=== PATIENT | female | born 1985 | race Caucasian/White ===

== ENCOUNTER → 2017-05-22 | Outpatient (REF) | payer BC ==
[2017-05-22 14:02] LABS: MEAN CORPUSCULAR HEMOGLOBIN 30.6 pg (27.0-33.0); MEAN CORPUSCULAR HGB CONC 32.6 g/dl (32.0-36.5); PLATELET COUNT, AUTOMATED 436 10^3/uL (150-450); RED CELL DISTRIBUTION WIDTH 12.8 % (11.5-14.5); WHITE BLOOD COUNT 12.3 10^3/uL (4.0-10.0)
[2017-05-22 14:45] LABS: HCG, SERUM QUANTITATIVE 2045 MIU/ML
[2017-05-23 14:31] LABS: HBsAg Prenatal NEGATIVE (NEGATIVE)
== END ==
LOC: M LAB REF 13:49
PROVIDERS: ATTEND Obstetrics & Gynecology
DX: O36.80X0 Pregnancy with inconclusive fetal viability, not applicable or unspecified (principal)

== ENCOUNTER → 2017-05-25 | Outpatient (REF) | payer BC | LOC: M LAB REF 13:22 | PROVIDERS: ATTEND Obstetrics & Gynecology | DX: O36.80X0 Pregnancy with inconclusive fetal viability, not applicable or unspecified (principal); Z3A.00 Weeks of gestation of pregnancy not specified ==

== ENCOUNTER → 2017-06-04 | Outpatient (REF) | payer BC | LOC: M LAB REF 13:36 | PROVIDERS: ATTEND Obstetrics & Gynecology | DX: O36.80X0 Pregnancy with inconclusive fetal viability, not applicable or unspecified (principal); Z3A.00 Weeks of gestation of pregnancy not specified ==

== ENCOUNTER → 2017-06-27 | Outpatient (CLI) | payer BC ==
[2017-06-27 18:59] LABS: MEAN CORPUSCULAR HEMOGLOBIN 30.6 pg (27.0-33.0); MEAN CORPUSCULAR HGB CONC 32.2 g/dl (32.0-36.5); MEAN CORPUSCULAR VOLUME 95.1 fl (80.0-96.0); PLATELET COUNT, AUTOMATED 401 10^3/uL (150-450); RED CELL DISTRIBUTION WIDTH 13.3 % (11.5-14.5); WHITE BLOOD COUNT 15.4 10^3/uL (4.0-10.0)
[2017-06-27 19:29] LABS: ALT/SGPT 67 U/L (12-78); AST/SGOT 38 U/L (7-37); BILIRUBIN,TOTAL 0.7 MG/DL (0.2-1.0); CREATININE FOR GFR 0.49 MG/DL (0.55-1.02); GLOMERULAR FILTRATION RATE > 60.0 (>60)
== END ==
LOC: M LAB 18:24
PROVIDERS: ATTEND Advanced Practice Midwife
DX: O09.891 Supervision of other high risk pregnancies, first trimester (principal); I10 Essential (primary) hypertension; Z3A.00 Weeks of gestation of pregnancy not specified

== ENCOUNTER → 2017-07-03 | Outpatient (CLI) | payer BC ==
[2017-07-03 12:29] LABS: ANION GAP 9 MEQ/L (8-16); BLOOD UREA NITROGEN 13 MG/DL (7-18); CALCIUM LEVEL 9.1 MG/DL (8.5-10.1); CARBON DIOXIDE LEVEL 25 MEQ/L (21-32); CHLORIDE LEVEL 105 MEQ/L (98-107); CREATININE FOR GFR 0.47 MG/DL (0.55-1.02); FREE T4 0.86 NG/DL (0.76-1.46); GLOMERULAR FILTRATION RATE > 60.0 (>60); GLUCOSE, FASTING 101 MG/DL (70-105); SODIUM LEVEL 139 MEQ/L (136-145)
== END ==
LOC: M WUC 10:14
PROVIDERS: ATTEND Physician Assistant
DX: E78.2 Mixed hyperlipidemia (principal); F41.1 Generalized anxiety disorder

== ENCOUNTER → 2017-10-23 | Outpatient (CLI) | payer BC ==
[2017-10-23 08:08] LABS: GLUCOSE, FASTING 129 MG/DL (LESS THAN 95)
[2017-10-23 08:55] LABS: 1 HR GLUCOSE 245 MG/DL (LESS THAN 180)
[2017-10-23 09:48] LABS: 2 HR GLUCOSE 227 MG/DL (LESS THAN 155)
[2017-10-23 10:46] LABS: 3 HR GLUCOSE 119 MG/DL (LESS THAN 140)
== END ==
LOC: M LAB 07:01
DX: O09.892 Supervision of other high risk pregnancies, second trimester (principal)
CPT/HCPCS: 82951

== ENCOUNTER → 2017-10-31 | Outpatient (REF) | payer BC | LOC: M LAB REF 12:46 | DX: O09.893 Supervision of other high risk pregnancies, third trimester (principal) | CPT/HCPCS: 87086 ==

== ENCOUNTER → 2017-12-13 | Outpatient (REF) | payer BC | LOC: M LAB REF 12-14 13:12 | DX: Z34.83 Encounter for supervision of other normal pregnancy, third trimester (principal); Z3A.00 Weeks of gestation of pregnancy not specified | CPT/HCPCS: 87081 ==

== ENCOUNTER 2017-12-29 07:38 | Inpatient (IN) | payer BC ==
[2017-12-29 08:34] LABS: HEMOGLOBIN 10.4 g/dl (12.0-15.5); MEAN CORPUSCULAR HEMOGLOBIN 30.3 pg (27.0-33.0); MEAN CORPUSCULAR HGB CONC 32.5 g/dl (32.0-36.5); MEAN CORPUSCULAR VOLUME 93.3 fl (80.0-96.0); PLATELET COUNT, AUTOMATED 341 10^3/uL (150-450); RED BLOOD COUNT 3.43 10^6/uL (4.00-5.40); RED CELL DISTRIBUTION WIDTH 14.8 % (11.5-14.5); WHITE BLOOD COUNT 11.5 10^3/uL (4.0-10.0)
[2017-12-29 09:08] LABS: ALT/SGPT 22 U/L (12-78); AST/SGOT 23 U/L (7-37); BILIRUBIN,TOTAL 0.5 MG/DL (0.2-1.0); CREATININE FOR GFR 0.66 MG/DL (0.55-1.30); GLOMERULAR FILTRATION RATE > 60.0 (>60); LDH LACTATE DEHYDROGENASE 157 U/L (84-246); URIC ACID 6.3 MG/DL (2.6-6.0)
[2017-12-29] MEDS: LABETALOL 100 MG TAB PO ×2 (10:00→20:18)
[2017-12-29 10:42] LABS: TOTAL PROTEIN,RANDOM URINE 105.7 MG/DL (0.0-12.0)
[2017-12-29] MEDS: LR 1,000 ML IV ×2 (11:13→18:52)
[2017-12-29] MEDS: OXYTOCIN DRIP 30 UNITS in APPROPRIATE DILUENT 1 EA IV (11:14)
[2017-12-29 12:37] LABS: BEDSIDE GLUCOSE 85 MG/DL (70-105)
[2017-12-29 17:01] LABS: BEDSIDE GLUCOSE 74 MG/DL (70-105)
[2017-12-29] MEDS ORDERED: glyBURIDE 2.5 MG TAB PO (17:30)
[2017-12-29 18:04] LABS: BEDSIDE GLUCOSE 76 MG/DL (70-105)
[2017-12-29 19:58] LABS: BEDSIDE GLUCOSE 60 MG/DL (70-105)
[2017-12-29] MEDS ORDERED: FENTANYL 2MCG/ML ROPIVACAINE 0.2% IN 0.9% NACL 200ML IVBAG As Ordered (22:07)
[2017-12-29 22:11] LABS: HEMATOCRIT 31.3 % (36.0-47.0); HEMOGLOBIN 10.4 g/dl (12.0-15.5); MEAN CORPUSCULAR HEMOGLOBIN 30.3 pg (27.0-33.0); MEAN CORPUSCULAR HGB CONC 33.2 g/dl (32.0-36.5); MEAN CORPUSCULAR VOLUME 91.3 fl (80.0-96.0); PLATELET COUNT, AUTOMATED 339 10^3/uL (150-450); RED BLOOD COUNT 3.43 10^6/uL (4.00-5.40); RED CELL DISTRIBUTION WIDTH 14.8 % (11.5-14.5); WHITE BLOOD COUNT 14.9 10^3/uL (4.0-10.0)
[2017-12-29 22:49] LABS: BEDSIDE GLUCOSE 83 MG/DL (70-105)
[2017-12-29] MEDS: FENTANYL/ROPIVACAINE/NACL BAG 200 ML EPIDURAL (23:45)
[2017-12-29] MEDS ORDERED: EPIDURAL/PCA KEYS XX (23:45)
[2017-12-29] MEDS ORDERED: ePHEDrine SULFATE 25 MG/5 ML(5MG/ML) SYRINGE IV (23:45)
[2017-12-29] MEDS ORDERED: ONDANSETRON 4MG/2ML VIAL (J2405) IV (23:45)
[2017-12-29] MEDS ORDERED: diphenhydrAMINE INJ 50MG/ML VIAL (J1200) IV (23:45)
[2017-12-29] MEDS ORDERED: EPIDURAL COMMENT XX (23:45)
[2017-12-29] MEDS ORDERED: NALOXONE INJ 0.4 MG/1 ML VIAL (J2310) IV (23:45)
[2017-12-29] MEDS ORDERED: REFRIGERATOR IV KEYS XX (23:45)
[2017-12-29 23:55] LABS: BEDSIDE GLUCOSE 79 MG/DL (70-105)
[2017-12-30] MEDS ORDERED: ceFAZolin 2 GM/D5W 50 ML IV BAG (J0690 PER 500MG) As Ordered (00:32)
[2017-12-30] MEDS ORDERED: BICITRA 30ML SOLN UDC As Ordered (00:32)
[2017-12-30] MEDS: BICITRA 30ML SOLN UDC PO (00:45)
[2017-12-30] MEDS ORDERED: OXYTOCIN INJ 10 UNITS/ML VIAL (J2590) As Ordered (01:21)
[2017-12-30] MEDS ORDERED: ONDANSETRON 4MG/2ML VIAL (J2405) As Ordered ×2 (01:21→02:50)
[2017-12-30] MEDS ORDERED: dexameTHASONE 4 MG/ML 1ML VIAL (J1100) As Ordered (01:21)
[2017-12-30] MEDS ORDERED: KETOROLAC 60 MG/2 ML VIAL (J1885) As Ordered (01:21)
[2017-12-30] MEDS ORDERED: MORPHINE PRES-FREE INJ 10 MG/10 ML VIAL (J2274) As Ordered (01:21)
[2017-12-30 01:45] LABS: CORD GAS ABE V -4.6; CORD GAS HCO3 V 20.8 MEQ/L; CORD GAS PCO2 V 39.6 mmHg; CORD GAS PH V 7.338 UNITS; CORD GAS PO2 V 25.9 mmHg; CORD GAS SBC V 19.8 MEQ/L
[2017-12-30] MEDS ORDERED: NALOXONE INJ 0.4 MG/1 ML VIAL (J2310) IV ×2 (01:48)
[2017-12-30] MEDS ORDERED: ONDANSETRON 4MG/2ML VIAL (J2405) IV ×2 (01:48→02:30)
[2017-12-30] MEDS ORDERED: NALBUPHINE HCL 10 MG/ML AMP (J2300) IV ×2 (01:48→02:30)
[2017-12-30 01:50] LABS: CORD GAS ABE A -2.5; CORD GAS HCO3 A 26.8 MEQ/L; CORD GAS O2 SAT A 15.2 %; CORD GAS PCO2 A 65.4 mmHg; CORD GAS PH A 7.231 UNITS; CORD GAS PO2 A < 10.0 mmHg; CORD GAS SBC A 20.2 MEQ/L; CORD GAS TCO2 A 28.8 MEQ/L
[2017-12-30] MEDS: LR 1,000 ML IV ×4 (02:11→18:02)
[2017-12-30] MEDS ORDERED: METHYLERGONOVINE MALEATE 0.2 MG/ML VIAL (J2210) IM (02:15)
[2017-12-30] MEDS ORDERED: RHOGAM 300 MCG (1500 IU) INJ (J2790) IM (02:15)
[2017-12-30] MEDS ORDERED: NORCO, ANEXSIA 5/325MG TABLET (HYDROcodone/ACETAMINOPHEN) PO (02:15)
[2017-12-30] MEDS ORDERED: MOM 30ML SUSPENSION UDC PO (02:15)
[2017-12-30] MEDS ORDERED: MEASLES,MUMPS,RUBELLA VACCINE INJ (MMR-II) (90707) SC (02:15)
[2017-12-30] MEDS ORDERED: MORPHINE 10 MG/ML 1ML VIAL (J2270) IV (02:30)
[2017-12-30] MEDS ORDERED: fentaNYL 100 MCG/2 ML INJECTION (J3010) IV (02:30)
[2017-12-30] MEDS ORDERED: fentaNYL 100 MCG/2 ML INJECTION (J3010) As Ordered (02:36)
[2017-12-30] MEDS ORDERED: LABETALOL HCL 100 MG/20 ML VIAL As Ordered (02:45)
[2017-12-30] MEDS: LABETALOL HCL 100 MG/20 ML VIAL IV (02:53)
[2017-12-30] MEDS ORDERED: PROMETHAZINE INJ 25 MG/ML VIAL (J2550) As Ordered (03:24)
[2017-12-30 03:25] LABS: BEDSIDE GLUCOSE 109 MG/DL (70-105)
[2017-12-30] MEDS: PROMETHAZINE INJ 25 MG/ML VIAL (J2550) IV (04:00)
[2017-12-30] MEDS: NS 500 ML IV (04:00)
[2017-12-30] MEDS ORDERED: MEPERIDINE 50 MG/ML 1ML VIAL (J2175) As Ordered (04:03)
[2017-12-30] MEDS: METOCLOPRAMIDE INJ 10MG/2ML VIAL (J2765) IV (06:39)
[2017-12-30] MEDS: LR 300 ML IV (06:45)
[2017-12-30 07:40] LABS: ALT/SGPT 21 U/L (12-78); AST/SGOT 22 U/L (7-37); BILIRUBIN,TOTAL 0.8 MG/DL (0.2-1.0); CREATININE FOR GFR 0.65 MG/DL (0.55-1.30); GLOMERULAR FILTRATION RATE > 60.0 (>60); LDH LACTATE DEHYDROGENASE 198 U/L (84-246)
[2017-12-30] MEDS: LABETALOL 100 MG TAB PO ×2 (09:00→21:14)
[2017-12-30] MEDS: PRENATAL VITAMINS CHEWABLE TABLET PO (09:00)
[2017-12-30] MEDS: DOCUSATE SODIUM 100 MG CAP PO ×2 (09:00→21:16)
[2017-12-30] MEDS: ONDANSETRON 4MG/2ML VIAL (J2405) IV ×3 (09:01→17:40)
[2017-12-30] MEDS: IBUPROFEN 800 MG TAB PO ×2 (10:00→18:00)
[2017-12-30 10:17] LABS: BEDSIDE GLUCOSE 118 MG/DL (70-105)
[2017-12-30] MEDS: KETOROLAC 30 MG/ML VIAL (J1885) IV ×2 (15:47→21:10)
[2017-12-30] MEDS: OMEPRAZOLE 20 MG CAP PO (21:15)
[2017-12-31] MEDS: KETOROLAC 30 MG/ML VIAL (J1885) IV (04:48)
[2017-12-31] MEDS: NORCO, ANEXSIA 5/325MG TABLET (HYDROcodone/ACETAMINOPHEN) PO ×3 (07:55→19:45)
[2017-12-31 07:59] LABS: HEMATOCRIT 25.9 % (36.0-47.0); MEAN CORPUSCULAR HEMOGLOBIN 30.3 pg (27.0-33.0); MEAN CORPUSCULAR VOLUME 94.5 fl (80.0-96.0); PLATELET COUNT, AUTOMATED 287 10^3/uL (150-450); RED BLOOD COUNT 2.74 10^6/uL (4.00-5.40)
[2017-12-31 08:07] LABS: HEMOGLOBIN 8.3 g/dl (12.0-15.5)
[2017-12-31] MEDS: OMEPRAZOLE 20 MG CAP PO (09:42)
[2017-12-31] MEDS: DOCUSATE SODIUM 100 MG CAP PO ×2 (09:42→21:09)
[2017-12-31] MEDS: LABETALOL 100 MG TAB PO ×2 (09:42→21:09)
[2017-12-31] MEDS: PRENATAL VITAMINS CHEWABLE TABLET PO (09:42)
[2017-12-31] MEDS: IBUPROFEN 800 MG TAB PO ×2 (10:00→19:29)
[2017-12-31] MEDS ORDERED: ONDANSETRON 4MG/2ML VIAL (J2405) IV (15:15)
[2017-12-31] MEDS: ONDANSETRON 4MG/2ML VIAL (J2405) IV (16:10)
[2018-01-01] MEDS: IBUPROFEN 800 MG TAB PO ×2 (01:58→09:48)
[2018-01-01] MEDS: NORCO, ANEXSIA 5/325MG TABLET (HYDROcodone/ACETAMINOPHEN) PO ×2 (05:40→09:36)
[2018-01-01] MEDS: DOCUSATE SODIUM 100 MG CAP PO (09:06)
[2018-01-01] MEDS: OMEPRAZOLE 20 MG CAP PO (09:09)
[2018-01-01] MEDS: PRENATAL VITAMINS CHEWABLE TABLET PO (09:09)
[2018-01-01] MEDS: LABETALOL 100 MG TAB PO (09:09)
== END 2018-01-01 11:00 | disposition home or self-care (01) | DRG 540 ==
LOC: M LDI 07:38 → M OBS 12-30 05:03
PROC: 10D00Z1 Extraction of Products of Conception, Low, Open Approach (ICD-10-PCS; principal; 2017-12-29 01:02)
PROC: 3E033VJ Introduction of Other Hormone into Peripheral Vein, Percutaneous Approach (ICD-10-PCS; 2017-12-29 01:02)
DX: O11.4 Pre-existing hypertension with pre-eclampsia, complicating childbirth (principal); E66.9 Obesity, unspecified; O99.214 Obesity complicating childbirth; O24.425 Gestational diabetes mellitus in childbirth, controlled by oral hypoglycemic drugs; O64.0XX0 Obstructed labor due to incomplete rotation of fetal head, not applicable or unspecified; Z37.0 Single live birth; Z3A.37 37 weeks gestation of pregnancy; Z79.899 Other long term (current) drug therapy; O76 Abnormality in fetal heart rate and rhythm complicating labor and delivery

== ENCOUNTER → 2018-03-20 | Outpatient (REF) | payer BC ==
[2018-03-20 23:56] LABS: CHLAMYDIA DNA AMPLIFICATION NEGATIVE (NEGATIVE); GC DNA AMPLIFICATION NEGATIVE (NEGATIVE)
== END ==
LOC: M LAB REF 17:28
DX: R30.0 Dysuria (principal)
CPT/HCPCS: 87186

== ENCOUNTER → 2018-08-01 | Outpatient (CLI) | payer BC ==
[~2018-08-01] MED LIST: CELE20TA PO; CLAR10CA3 PO; COLA100C5 PO; GLYB25TA PO; IBUP80TA PO; LABE300T2 PO; OMEP40CA2 PO; OXYC1TAB23 PO; PRENTAB9 PO
--- NOTE | 2018-08-01 20:07 | REP ---
Clinical: Acute bronchitis. Technique: PA and lateral. Comparison: None. Findings: Elevation to the right hemidiaphragm is appreciated with underlying right lower lobe atelectasis/infiltrate suspected and possible small pleural reaction. Remainder of lung lai are well-aerated and clear. No pneumothorax. Skeletal structures intact. Mediastinum and cardiac silhouette within normal limits. Impression: Suspected right lower lobe atelectasis/infiltrate. Correlation recommended. Nonspecific elevation to the right hemidiaphragm. Electronically Signed by Juan Pablo Chavez MD 08/01/2018 07:59 P
== END ==
LOC: M RAD 14:16
PROVIDERS: ATTEND Physician Assistant
DX: R91.8 Other nonspecific abnormal finding of lung field (principal); J20.9 Acute bronchitis, unspecified

== ENCOUNTER → 2018-08-28 | Outpatient (CLI) | payer BC ==
--- NOTE | 2018-08-29 02:34 | REP ---
Clinical: Acute bronchitis. Technique: PA and lateral. Comparison: 08/19/2018. Findings: Mediastinum and cardiac silhouette are normal. Right basilar atelectasis and possible small right pleural reaction cannot be excluded. Remainder of lung lai are well-aerated and clear. No pneumothorax. Skeletal structures are intact. Impression: Possible right basilar atelectasis and small pleural reaction. Clinical correlation recommended. Electronically Signed by Juan Pablo Chavez MD 08/29/2018 02:25 A
== END ==
LOC: M RAD 11:03
PROVIDERS: ATTEND Family Medicine
DX: J20.9 Acute bronchitis, unspecified (principal)

== ENCOUNTER → 2018-11-27 | Outpatient (CLI) | payer BC ==
[2018-11-27 20:01] LABS: HEMATOCRIT 38.6 % (36.0-47.0); MEAN CORPUSCULAR HEMOGLOBIN 29.1 pg (27.0-33.0); MEAN CORPUSCULAR HGB CONC 31.1 g/dl (32.0-36.5); MEAN CORPUSCULAR VOLUME 93.7 fl (80.0-96.0); PLATELET COUNT, AUTOMATED 429 10^3/uL (150-450); RED BLOOD COUNT 4.12 10^6/uL (4.00-5.40)
[2018-11-27 20:20] LABS: LYMPHOCYTES 45 % (16-52); MONOCYTES 4 % (0-8); NEUTROPHILS 51 % (35-75); PLATELET ESTIMATE NORMAL (NORMAL)
[2018-11-27 20:25] LABS: ALBUMIN 3.9 GM/DL (3.2-5.2); ALT/SGPT 86 U/L (12-78); BILIRUBIN,TOTAL 0.6 MG/DL (0.2-1.0); BLOOD UREA NITROGEN 13 MG/DL (7-18); CALCIUM LEVEL 9.5 MG/DL (8.5-10.1); CARBON DIOXIDE LEVEL 28 MEQ/L (21-32); CHLORIDE LEVEL 104 MEQ/L (98-107); CHOLESTEROL LEVEL 247 MG/DL (<200); CHOLESTEROL RISK RATIO 8.517 (<5); CREATININE FOR GFR 0.59 MG/DL (0.55-1.30); FREE T4 0.75 NG/DL (0.76-1.46); GLOMERULAR FILTRATION RATE > 60.0 (>60); GLUCOSE, FASTING 98 MG/DL (70-100); HDL CHOLESTEROL 29 MG/DL (>40); NON-HDL-C 218 MG/DL; POTASSIUM SERUM 4.4 MEQ/L (3.5-5.1); SODIUM LEVEL 139 MEQ/L (136-145); TOTAL PROTEIN 7.4 GM/DL (6.4-8.2); TRIGLYCERIDES LEVEL 405 MG/DL (<150)
[2018-11-27 21:53] LABS: HEMOGLOBIN A1c 5.8 %
== END ==
LOC: M WUC 18:22
PROVIDERS: ATTEND Family Medicine
DX: Z13.29 Encounter for screening for other suspected endocrine disorder (principal); Z13.0 Encounter for screening for diseases of the blood and blood-forming organs and certain disorders involving the immune mechanism; Z13.220 Encounter for screening for lipoid disorders

== ENCOUNTER → 2018-12-11 | Outpatient (REF) | payer BC ==
[2018-12-11 21:25] LABS: CHLAMYDIA DNA AMPLIFICATION NEGATIVE (NEGATIVE); GC DNA AMPLIFICATION NEGATIVE (NEGATIVE)
== END ==
LOC: M LAB REF 16:42
PROVIDERS: ATTEND Family Medicine
DX: N76.0 Acute vaginitis (principal)

== ENCOUNTER → 2019-04-18 | Outpatient (REF) | payer BC ==
[~2019-04-18] MED LIST changes: -OMEP40CA2 PO; +OMEP40CA97 PO
[2019-04-24 10:07] LABS: HPV LOW VOL RFLX Positive (Negative)
== END ==
LOC: M LAB REF 17:41
PROVIDERS: ATTEND Advanced Practice Midwife
DX: Z12.4 Encounter for screening for malignant neoplasm of cervix (principal); R87.612 Low grade squamous intraepithelial lesion on cytologic smear of cervix (LGSIL)
CPT/HCPCS: 87624; G0123

== ENCOUNTER → 2019-04-30 | Outpatient (CLI) | payer BC ==
[2019-04-30 20:33] LABS: BASO # 0.1 10^3/uL (0.0-0.2); BASO % 0.6 % (0.0-1.0); EOS # 0.2 10^3/uL (0.0-0.5); EOS % 1.7 % (0.0-3.0); HEMATOCRIT 36.8 % (36.0-47.0); HEMOGLOBIN 11.1 g/dl (12.0-15.5); MEAN CORPUSCULAR HEMOGLOBIN 26.6 pg (27.0-33.0); MEAN CORPUSCULAR HGB CONC 30.2 g/dl (32.0-36.5); MONO # 0.6 10^3/uL (0.0-0.8); MONO % 6.4 % (0.0-5.0); NEUTROPHILS # 4.7 10^3/uL (1.5-8.5); PLATELET COUNT, AUTOMATED 413 10^3/uL (150-450); RED BLOOD COUNT 4.18 10^6/uL (4.00-5.40); WHITE BLOOD COUNT 9.5 10^3/uL (4.0-10.0)
[2019-04-30 20:46] LABS: ALBUMIN 3.9 GM/DL (3.2-5.2); ALT/SGPT 98 U/L (12-78); BILIRUBIN,TOTAL 0.9 MG/DL (0.2-1.0); BLOOD UREA NITROGEN 14 MG/DL (7-18); CALCIUM LEVEL 9.3 MG/DL (8.5-10.1); CARBON DIOXIDE LEVEL 24 MEQ/L (21-32); CHLORIDE LEVEL 107 MEQ/L (98-107); CHOLESTEROL LEVEL 264 MG/DL (<200); CHOLESTEROL RISK RATIO 9.103 (<5); CREATININE FOR GFR 0.64 MG/DL (0.55-1.30); FREE T4 0.91 NG/DL (0.76-1.46); GLOMERULAR FILTRATION RATE > 60.0 (>60); GLUCOSE, FASTING 114 MG/DL (70-100); HDL CHOLESTEROL 29 MG/DL (>40); LDL CHOLESTEROL 164 MG/DL (<100); NON-HDL-C 235 MG/DL; POTASSIUM SERUM 4.2 MEQ/L (3.5-5.1); SODIUM LEVEL 140 MEQ/L (136-145); TOTAL PROTEIN 7.8 GM/DL (6.4-8.2); TRIGLYCERIDES LEVEL 353 MG/DL (<150)
[2019-04-30 20:57] LABS: HEMOGLOBIN A1c 6.3 %
== END ==
LOC: M WUC 18:13
PROVIDERS: ATTEND Physician Assistant
DX: F33.1 Major depressive disorder, recurrent, moderate (principal); E78.2 Mixed hyperlipidemia; R73.03 Prediabetes

== ENCOUNTER → 2019-07-10 | Outpatient (CLI) | payer SELFPAY | LOC: M PLALAB 14:49 | PROVIDERS: ATTEND Advanced Practice Midwife | DX: O36.80X0 Pregnancy with inconclusive fetal viability, not applicable or unspecified (principal); Z3A.00 Weeks of gestation of pregnancy not specified ==

== ENCOUNTER → 2019-07-14 | Outpatient (REF) | payer OTHER | LOC: M LAB REF 17:04 | PROVIDERS: ATTEND Physician Assistant | DX: R21 Rash and other nonspecific skin eruption (principal) ==

== ENCOUNTER → 2019-07-15 | Outpatient (CLI) | payer OTHER ==
--- NOTE | 2019-07-15 19:57 | REP ---
Clinical: Dating and viability. Technique: Transabdominal first trimester obstetrical channel with color Doppler evaluation. Findings: Ultrasound examination demonstrates single live early intrauterine . Gestational sac with pole noted. CRL of 28 mm corresponds to 9 weeks 3 days gestational age with estimated date of delivery 02/16/2020. heart rate equals 160 beats per minute. No subchorionic hemorrhage. Maternal ovaries are normal. Impression: Single live early intrauterine with current measurements at 9 weeks 3 days gestational age. Complete anatomical assessment should be performed at 19-20 weeks.
== END ==
LOC: M WHC 11:03
PROVIDERS: ATTEND Advanced Practice Midwife
DX: O36.80X0 Pregnancy with inconclusive fetal viability, not applicable or unspecified (principal); Z3A.00 Weeks of gestation of pregnancy not specified

== ENCOUNTER → 2019-08-26 | Outpatient (CLI) | payer OTHER ==
[2019-08-26 18:29] LABS: BASO # 0.1 10^3/uL (0.0-0.2); BASO % 0.4 % (0.0-1.0); EOS # 0.1 10^3/uL (0.0-0.5); EOS % 0.9 % (0.0-3.0); HEMATOCRIT 32.3 % (36.0-47.0); HEMOGLOBIN 10.1 g/dl (12.0-15.5); LYMPH # 2.9 10^3/uL (1.5-5.0); LYMPH % 24.8 % (24.0-44.0); MEAN CORPUSCULAR HEMOGLOBIN 29.3 pg (27.0-33.0); MEAN CORPUSCULAR HGB CONC 31.3 g/dl (32.0-36.5); MEAN CORPUSCULAR VOLUME 93.6 fl (80.0-96.0); MONO # 0.4 10^3/uL (0.0-0.8); MONO % 3.8 % (0.0-5.0); NEUTROPHILS # 8.1 10^3/uL (1.5-8.5); NEUTROPHILS % 69.7 % (36.0-66.0); PLATELET COUNT, AUTOMATED 314 10^3/uL (150-450); RED BLOOD COUNT 3.45 10^6/uL (4.00-5.40); WHITE BLOOD COUNT 11.6 10^3/uL (4.0-10.0)
[2019-08-26 18:42] LABS: TOTAL PROTEIN,RANDOM URINE 16.1 MG/DL (0.0-12.0)
[2019-08-26 18:44] LABS: HEMOGLOBIN A1c 6.1 %
[2019-08-26 20:00] LABS: CHLAMYDIA DNA AMPLIFICATION NEGATIVE (NEGATIVE); GC DNA AMPLIFICATION NEGATIVE (NEGATIVE)
[2019-08-27 08:42] LABS: ALT/SGPT 39 U/L (12-78); BILIRUBIN,TOTAL 0.6 MG/DL (0.2-1.0); CREATININE FOR GFR 0.52 MG/DL (0.55-1.30); GLOMERULAR FILTRATION RATE > 60.0 (>60); GLUCOSE CHALLENGE TEST 1 HOUR 144 MG/DL (LESS THAN 140); LDH LACTATE DEHYDROGENASE 111 U/L (84-246); URIC ACID 4.5 MG/DL (2.6-6.0)
[2019-08-27 09:09] LABS: RUBELLA IgG QUALITATIVE IMMUNE (IMMUNE)
[2019-08-27 09:37] LABS: HEPATITIS C VIRUS ABY INDEX < 0.0 INDEX (<0.8)
[2019-08-27 09:38] LABS: HIV 1&2 SCREEN CENTAUR NEGATIVE (NEGATIVE)
== END ==
LOC: M PLALAB 11:13
PROVIDERS: ATTEND Advanced Practice Midwife
DX: O34.211 Maternal care for low transverse scar from previous cesarean delivery (principal); Z3A.00 Weeks of gestation of pregnancy not specified

== ENCOUNTER → 2019-09-18 | Outpatient (CLI) | payer OTHER ==
--- NOTE | 2019-09-19 06:47 | REP ---
Clinical: Anatomical evaluation. Comparison: 07/15/2019 . Findings: Examination demonstrates a single live intrauterine in variable presentation. motion is identified by technologist. Placenta is noted anterior and grade zero without evidence for placenta previa or abruption. Amniotic fluid volume is normal. Cervix measures 3.5 cm in length and appears closed. No evidence for nuchal cord. Gestational age by first US 18 weeks 3 days with RORY 02/16/2020 . Gestational age by current measurements 19 weeks 0 days with RORY 02/12/2020 . FHR equals 153 beats per minute. Estimated weight 252 grams ( 54th percentile). Anatomical assessment demonstrates normal structures including cranium, choroid plexus, cavum, cerebellum/posterior fossa, diaphragm, stomach, cord insertion/three-vessel cord, kidneys/bladder, and extremities. Limited evaluation of the facial features, heart/ventricular outflow tracts, and spine. Impression: 1. Single live intrauterine in variable presentation demonstrating appropriate interval growth compared to first ultrasound. 2. Anatomical limitations as noted above. No gross abnormality identified.
== END ==
LOC: M WHC 13:01
PROVIDERS: ATTEND Advanced Practice Midwife
DX: O99.512 Diseases of the respiratory system complicating pregnancy, second trimester (principal); O99.212 Obesity complicating pregnancy, second trimester; Z3A.19 19 weeks gestation of pregnancy

== ENCOUNTER → 2019-09-19 | Outpatient (CLI) | payer OTHER | LOC: M LAB 08:09 | PROVIDERS: ATTEND Advanced Practice Midwife | DX: O99.810 Abnormal glucose complicating pregnancy (principal); Z3A.00 Weeks of gestation of pregnancy not specified ==

== ENCOUNTER → 2019-10-29 | Outpatient (CLI) | payer OTHER ==
--- NOTE | 2019-10-29 18:14 | REP ---
Clinical: Anatomical evaluation. Comparison: 09/18/2019 . Findings: Examination demonstrates a single live intrauterine in transverse (head to maternal left) presentation. motion is identified by technologist. Placenta is noted anterior and grade zero without evidence for placenta previa or abruption. Amniotic fluid volume is normal. Cervix measures 3.9 cm in length and appears closed. No evidence for nuchal cord. Gestational age by first US 24 weeks 2 days with RORY 02/16/2020 . Gestational age by current measurements 24 weeks 2 days with RORY 02/16/2020 . FHR equals 143 beats per minute. Estimated weight 722 grams ( 54th percentile). Anatomical assessment demonstrates normal structures including facial features, and ventricular outflow tracts. Impression: 1. Single live intrauterine in transverse lie demonstrating appropriate interval growth compared to first ultrasound. 2. Views of the four-chamber heart and spine are again limited due to positioning.
== END ==
LOC: M WHC 08:59
PROVIDERS: ATTEND Advanced Practice Midwife
DX: Z36.89 Encounter for other specified antenatal screening (principal); Z3A.24 24 weeks gestation of pregnancy

== ENCOUNTER → 2019-11-05 | Outpatient (CLI) | payer OTHER | LOC: M WHC 07:38 | PROVIDERS: ATTEND Advanced Practice Midwife | DX: O34.211 Maternal care for low transverse scar from previous cesarean delivery (principal); Z53.9 Procedure and treatment not carried out, unspecified reason ==

== ENCOUNTER → 2019-11-17 | Outpatient (CLI) | payer OTHER ==
--- NOTE | 2019-11-17 19:58 | REP ---
Clinical: Anatomical evaluation. Comparison: 10/29/2019 . Findings: Examination demonstrates a single live intrauterine in breech presentation. motion is identified by technologist. Placenta is noted anterior and grade I without evidence for placenta previa or abruption. Amniotic fluid volume is normal. Cervix measures 3.7 cm in length and appears closed. No evidence for nuchal cord. Gestational age by LMP 28 weeks 6 days with RORY 02/03/2020 . Gestational age by current measurements 27 weeks 1 day with RORY 02/15/2020 . FHR equals 146 beats per minute. Estimated weight by current biometrical measurements 1077 grams ( 53rd percentile based on age by first ultrasound and current measurements). Anatomical assessment demonstrates normal structures including cranium, facial profile, diaphragm, stomach, cord insertion/three-vessel cord, kidneys/bladder, spine. Impression: Single live intrauterine in breech presentation demonstrating appropriate interval growth. Limited evaluation of the four-chamber heart again noted. In conjunction with prior examination remainder of the anatomical assessment is complete and normal.
== END ==
LOC: M WHC 08:56
PROVIDERS: ATTEND Advanced Practice Midwife
DX: O34.211 Maternal care for low transverse scar from previous cesarean delivery (principal); O32.1XX0 Maternal care for breech presentation, not applicable or unspecified; Z3A.28 28 weeks gestation of pregnancy

== ENCOUNTER → 2019-12-22 | Outpatient (CLI) | payer OTHER ==
[~2019-12-22] MED LIST changes: +FERR32TA PO; +LEXA1TAB2 PO; +MAPA500T2 PO; +METF-839 PO; +SING5CHW23 PO; +TUMS750C5 PO
[2019-12-22 11:57] LABS: HEMATOCRIT 27.3 % (36.0-47.0); HEMOGLOBIN 8.2 g/dl (12.0-15.5); MEAN CORPUSCULAR VOLUME 93.2 fl (80.0-96.0); PLATELET COUNT, AUTOMATED 254 10^3/uL (150-450); RED BLOOD COUNT 2.93 10^6/uL (4.00-5.40); WHITE BLOOD COUNT 10.3 10^3/uL (4.0-10.0)
== END ==
LOC: M WUC 09:26
PROVIDERS: ATTEND Advanced Practice Midwife
DX: O24.313 Unspecified pre-existing diabetes mellitus in pregnancy, third trimester (principal)

== ENCOUNTER → 2019-12-22 | Outpatient (CLI) | payer OTHER ==
--- NOTE | 2019-12-22 14:28 | REP ---
Clinical: Growth evaluation Comparison: 12/08/2019 . Findings: Examination demonstrates a single live intrauterine in variable presentation. motion is identified by technologist. Placenta is noted anterior and grade I I without evidence for placenta previa or abruption. Amniotic fluid volume is normal. Cervix measures 3.9 cm in length and appears closed. No evidence for nuchal cord. Gestational age by LMP 33 weeks 6 days with RORY 02/03/2020 . Gestational age by current measurements 32 weeks 4 days with RORY 02/12/2020 . FHR equals 155 beats per minute. Estimated weight 2085 no grams ( 62nd percentile). Impression: Single live intrauterine in variable presentation demonstrating appropriate estimated weight and interval growth. No gross abnormalities are identified.
== END ==
LOC: M WHC 10:33
PROVIDERS: ATTEND Advanced Practice Midwife
DX: O24.313 Unspecified pre-existing diabetes mellitus in pregnancy, third trimester (principal); Z3A.33 33 weeks gestation of pregnancy

== ENCOUNTER 2019-12-30 09:58 | Outpatient (CLI) | payer OTHER ==
[~2019-12-30] VITALS: Ht 172.7 cm; Wt 124.0 kg
[2019-12-30] VITALS (11 sets, daily range): BP systolic 122–161; BP diastolic 64–75
[~2019-12-30 09:58] MED LIST changes: -FERR32TA PO; -LEXA1TAB2 PO; -MAPA500T2 PO; -METF-839 PO; -SING5CHW23 PO; -TUMS750C5 PO
[2019-12-30] MEDS ORDERED: TUMS750C5 PO (10:36)
[2019-12-30] MEDS ORDERED: SING5CHW23 PO (10:39)
[2019-12-30] MEDS ORDERED: MAPA500T2 PO (10:39)
[2019-12-30] MEDS ORDERED: METF-839 PO (10:39)
[2019-12-30] MEDS ORDERED: LEXA1TAB2 PO (10:40)
[2019-12-30] MEDS ORDERED: FERR32TA PO (10:41)
[2019-12-30 12:00] LABS: HEMATOCRIT 26.5 % (36.0-47.0); HEMOGLOBIN 8.1 g/dl (12.0-15.5); MEAN CORPUSCULAR HEMOGLOBIN 27.7 pg (27.0-33.0); MEAN CORPUSCULAR HGB CONC 30.6 g/dl (32.0-36.5); MEAN CORPUSCULAR VOLUME 90.8 fl (80.0-96.0); PLATELET COUNT, AUTOMATED 273 10^3/uL (150-450); RED BLOOD COUNT 2.92 10^6/uL (4.00-5.40); WHITE BLOOD COUNT 10.4 10^3/uL (4.0-10.0)
[2019-12-30 12:13] LABS: CREATININE,RANDOM URINE 62.1 MG/DL; TOTAL PROTEIN,RANDOM URINE 42.9 MG/DL (0.0-12.0)
[2019-12-30 12:28] LABS: ALT/SGPT 15 U/L (12-78); BILIRUBIN,TOTAL 0.6 MG/DL (0.2-1.0); CREATININE FOR GFR 0.49 MG/DL (0.55-1.30); GLOMERULAR FILTRATION RATE > 60.0 (>60); LDH LACTATE DEHYDROGENASE 134 U/L (84-246); URIC ACID 5.2 MG/DL (2.6-6.0)
--- NOTE | 2019-12-30 12:51 | REP ---
OBSTETRIC SONOGRAPHY: HISTORY: Supervision of growth study. FINDINGS: Scanning through the gravid uterus demonstrates a single living intrauterine gestation in a vertex lie. motion is observed and heart rate is recorded at 140 beats per minute. An anterior grade 1 placenta is seen without evidence of previa abruption. Amniotic fluid is subjectively increased. The amniotic fluid index is increased at 34.6 cm (8.3 to 24.6 cm). No extrauterine abnormality is observed. There has been greater than expected interval growth in the fetus. The following anatomic structures are identified today and felt to be unremarkable: cranium, lungs, diaphragm, left-sided stomach, kidneys and bladder. BIOMETRY CHART: BPD 9.0 cm = 36 weeks 4 days HC 32.8 cm = 37 weeks 1 day AC 35.6 cm = 39 weeks 4 days FL 6.9 cm = 35 weeks 2 days HL 6.1 cm = 35 weeks 4 days HC/AC ratio 0.92 (0.95-1.13) Cephalic index normal 0.78. Estimated weight 3362 grams, 7 pounds 6 ounces, greater 97th percentile for 33 weeks 1 day. CHRISTOS 34.6 cm. Biophysical profile score 8 out of a possible 8. S/D ratio in the umbilical cord artery by Doppler slightly elevated 3.33 (2.00-3.00). IMPRESSION: Viable single intrauterine gestation at 36 weeks 6 days by today's composite sonographic criteria. Expected gestational age estimate based on prior sonography is 33 weeks 1 day. RORY prior sonography February 16, 2020. Estimated weight greater than 97th percentile. Polyhydramnios. CHRISTOS 34.6 cm. Biophysical profile score 8 of a possible 8. SD ratio slightly elevated 3.33. Electronically Signed by Christopher Rowe MD 12/30/2019 05:14 P
--- NOTE | 2019-12-30 18:41 | IPNPDOC ---
Obstetrical Progress Note Date of Service Dec 30, 2019 Subjective 34-year-old 3, para 1 who presents at 30 weeks 0 days estimate gestational age for evaluation for elevated blood pressure. She has been taking her blood pressure at work and has noticed severely elevated blood pressures. She also reports headache that now reduced in intensity. Denies any visual changes or abdominal pain Objective Vital Signs Date Time Temp Pulse Resp B/P (MAP) Pulse Ox O2 Delivery O2 Flow Rate FiO2 12/30/19 13:03 97.6 74 20 149/70 (96) 96 Room Air Assessment Variability: Moderate Accelerations: Positive Decelerations: None Heart Rate Tracing: Category I Tocometer Contractions: No Assessment and Plan Age: 34 : 3 EGA at Admission: 1 Status: Reassuring Additional Comments [id number] dx with preeclampsia currently stable Reassuring status -Home with PTL and preeclampsia precautions -f/u in office ANDERS CIFUENTES MD. Dec 30, 2019 18:41
== END 2019-12-30 13:05 ==
LOC: M LDO 09:58
PROVIDERS: ATTEND Obstetrics & Gynecology
DX: O14.93 Unspecified pre-eclampsia, third trimester (principal); Z3A.30 30 weeks gestation of pregnancy
CPT/HCPCS: 36415; 59025; 76816; 76819; 76820; 82247; 82565; 82570; 83615; 84156; 84450; 84460; 84550; 85027; G0378; G0463

== ENCOUNTER → 2020-01-06 | Outpatient (CLI) | payer OTHER ==
[~2020-01-06] MED LIST changes: +ALBU8.5H INH; +ASPI81TA85 PO; +FERR32TA PO; +LEXA1TAB2 PO; +MAPA500T2 PO; +METF-839 PO; +SING5CHW23 PO; +SUMA50TA2 PO; +TUMS750C5 PO
--- NOTE | 2020-01-06 12:24 | REP ---
Clinical: well-being Comparison: 12/30/2019 . Findings: Examination demonstrates a single live intrauterine in cephalic presentation. motion is identified by technologist. Placenta is noted anterior and grade I I I without evidence for placenta previa or abruption. Amniotic fluid volume is increased. Cervix appears closed. Gestational age by LMP 36 weeks 0 days with RORY 02/03/2020 . Gestational age by first US 34 weeks 1 day with RORY 02/16/2020 . FHR equals 133 beats per minute. Biophysical profile score: 02/13 Amniotic fluid index: 33.4 cm (8.1 - 24.8) Umbilical cord SD ratio: 2.29 (2.00 - 3.00) Impression: Single live advanced gestation in cephalic presentation. Biophysical profile score is normal. Increased amniotic fluid volume suggesting polyhydramnios.
== END ==
LOC: M WHC 07:40
PROVIDERS: ATTEND Advanced Practice Midwife
DX: O24.113 Pre-existing type 2 diabetes mellitus, in pregnancy, third trimester (principal); O14.93 Unspecified pre-eclampsia, third trimester; O40.3XX0 Polyhydramnios, third trimester, not applicable or unspecified; Z3A.36 36 weeks gestation of pregnancy

== ENCOUNTER → 2020-01-08 | Outpatient (REF) | payer OTHER ==
[~2020-01-08] MED LIST changes: +LABE10TAB PO
== END ==
LOC: M SFHCWAGY 16:45
PROVIDERS: ATTEND Advanced Practice Midwife
DX: O34.211 Maternal care for low transverse scar from previous cesarean delivery (principal)

== ENCOUNTER → 2020-01-12 | Outpatient (REF) | payer OTHER ==
[~2020-01-12] MED LIST changes: -ASPI81TA85 PO; +ASPI81TA86 PO
== END ==
LOC: M PLALAB 08:34
PROVIDERS: ATTEND Advanced Practice Midwife
DX: O34.211 Maternal care for low transverse scar from previous cesarean delivery (principal)

== ENCOUNTER → 2020-01-12 | Outpatient (CLI) | payer OTHER ==
[~2020-01-12] MED LIST changes: +ASPI81TA85 PO; -ASPI81TA86 PO
--- NOTE | 2020-01-12 10:46 | REP ---
REASON: Followup for well-being. The exam is limited. Multiple ultrasonographic images of the gravid uterus show a single living intrauterine gestation in the transverse head to the maternal left position. Doppler interrogation of the heart shows a heart rate of 160 beats per minute. The cervix measures 3.4 cm in length and is closed. The subjective amniotic fluid volume is increased. The calculated amniotic fluid index is 33.3 with an expected range of 7.9 to 24.9. The placenta is anterior and not low lying. Doppler interrogation of the umbilical artery shows an A/B ratio of 2.8. This is within the normal range. Evaluation of the maternal adnexal spaces showed no abnormalities. biophysical profile score is 2 for breathing, 2 for movement, 2 for tone and 2 for amniotic fluid volume giving a sum total of 8 out of 8. BPD 9.3 cm = 37 weeks 6 days HC 34.5 cm = 39 weeks 6 days AC 36.6 cm = 40 weeks 4 days FL 6.8 cm = 35 weeks 0 days The estimated weight is 3656 grams which is at the 91st percentile for a 57-soce-1-day gestational age and over 97th percentile for a 13-vnvo-7-day gestational age. IMPRESSION: Limited OB ultrasound as described above.
== END ==
LOC: M WHC 08:05
PROVIDERS: ATTEND Advanced Practice Midwife
DX: O24.113 Pre-existing type 2 diabetes mellitus, in pregnancy, third trimester (principal); O14.93 Unspecified pre-eclampsia, third trimester; O40.3XX0 Polyhydramnios, third trimester, not applicable or unspecified; Z3A.35 35 weeks gestation of pregnancy

== ENCOUNTER 2020-01-18 13:00 | Outpatient (CLI) | payer OTHER ==
[~2020-01-18] VITALS: Ht 172.7 cm; Wt 129.0 kg
[~2020-01-18 13:00] MED LIST changes: -ALBU8.5H INH; -ASPI81TA85 PO; -LABE10TAB PO; -SUMA50TA2 PO
[2020-01-18] MEDS ORDERED: ASPI81TA86 PO (13:21)
[2020-01-18 13:24] VITALS: BP 165/87
[2020-01-18 13:35] VITALS: BP 162/89
[2020-01-18 13:53] VITALS: BP 162/92
[2020-01-18] MEDS ORDERED: BETAMETHASONE SOLUSPAN 6MG/ML 5ML VIAL (J0702 PER 3MG) IM ONE (14:00)
[2020-01-19] MEDS ORDERED: SUMA50TA2 PO (13:52)
[2020-01-19] MEDS ORDERED: ALBU8.5H INH (13:52)
== END 2020-01-18 14:55 | disposition home or self-care (01) ==
LOC: M LDO 13:00
PROVIDERS: ATTEND Obstetrics & Gynecology
DX: O14.93 Unspecified pre-eclampsia, third trimester (principal); Z3A.36 36 weeks gestation of pregnancy
CPT/HCPCS: 59025; 96372; G0378; G0463; J0702

== ENCOUNTER 2020-01-19 13:07 | Inpatient (IN) | payer OTHER ==
[2020-01-19] VITALS (44 sets, daily range): BP systolic 127–175; BP diastolic 65–88
[~2020-01-19] VITALS: Ht 172.7 cm; Wt 131.0 kg
[~2020-01-19 13:07] MED LIST changes: +ASPI81TA85 PO
[2020-01-19] MEDS ORDERED: BETAMETHASONE SOLUSPAN 6MG/ML 5ML VIAL (J0702 PER 3MG) IM ONE (13:30)
[2020-01-19] MEDS ORDERED: SUMA50TA2 PO (13:52)
[2020-01-19] MEDS ORDERED: ALBU8.5H INH (13:52)
--- NOTE | 2020-01-19 15:08 | HPEPDOC ---
Obstetrical History & Physical General Date of Admission Jan 19, 2020 at 14:43 Primary Care Physician: MARY PINTO CNM History of Present Illness Patient is a 34-year-old female who is a at 36 weeks gestation with an RORY of 02/16/20 based off of her first trimester ultrasound. She initiated care in her first trimester with [facility]. Her has been complicated by a history of CHTN (which she has not taken medications for during this ), pregestational diabetes (taking 1000 mg metformin BID), prior section (desires repeat section with tubal ligation), Polyhydramnios, and preeclampsia. She was seen yesterday for a dose of betamethasone and had a severe range BP followed by appropriate BPs. She came in today and had another severe range BP. Dr. Brush was notified and recommend she stay for monitoring and plan for section tomorrow. She denies preeclamptic symptoms, contractions, vaginal bleeding, leaking of fluid. She reports active movement. 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 pressures Anemia Polyhydramnios Morbid obesity Prior section Height (inches): 68 Pre- weight (lbs.): 253 Admission Weight (lbs.): 276 Change in Weight (lbs.): 23 Past Medical History Past Obstetrical History : Gestation: 37.5 Type of Delivery: Ceserean section Sex of Infant: Male Complications: Yes (CHTN, polyhydramnios, GDM) 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 , Human papillomavirus(HPV) Past Medical History Medical History Asthma GERD Hypertension gestational diabetes now diagnosed with Pregestational diabetes Surgical History: section Family History Significant Family History: Cancer (bladder cancer and lung cancer), Heart disease Social History Marital Status: Family situation: Spouse/partner home Psychosocial History: Depression * Smoker: non-smoker Alcohol: Denies Drugs: denies Allergies Coded Allergies: No Known Allergies (Unverified , 01/19/20) Medications Scheduled Aspirin (Aspir 81) 81 Mg Tablet.dr, 81 MG PO DAILY for pain Escitalopram Oxalate (Lexapro) 20 Mg Tablet, 1 TAB PO DAILY Ferrous Gluconate (Ferrous Gluconate) 324 Mg Tablet, 1 TAB PO BID Loratadine (Claritin) 10 Mg Cap, 10 MG PO DAILY for allergy symptoms Metformin HCl (Metformin HCl) 500 Mg Tablet, 1,000 MG PO BID Montelukast Sodium (Singulair) 5 Mg Tab.chew, 1 TAB PO DAILY Omeprazole (Omeprazole) 40 Mg Cap, 20 MG PO DAILY No.137/Iron/Folic Acd ( Vitamin Tablet) 1 Tab Tab, 2 TAB PO DAILY Scheduled PRN Acetaminophen (Mapap) 500 Mg Tablet, 1,000 MG PO Q6HP PRN for DISCOMFORT Albuterol Sulfate (Albuterol Sulfate Hfa) 8.5 Gm Hfa.aer.ad, 2 PUFF INH Q4-6HP PRN for WHEEZING Calcium Carbonate (Tums) 300 Mg Tab.chew, 2 TAB PO Q6HP PRN for INDIGESTION Docusate Sodium (Colace) 100 Mg Cap, 100 MG PO BID PRN for CONSTIPATION Sumatriptan Succinate (Sumatriptan Succinate) 50 Mg Tablet, 50 MG PO PRN PRN for MIGRAINE Physical Examination Physical Examination GENERAL: Alert and oriented times three. BREAST: . ABDOMEN: Gravid and non-tender to touch. FETUS: Is vertex (VTX) by sterile vaginal examination (SVE), fetus is vertex (VTX) by Antoine. HEART RATE: Regular rate and rhythm. LUNGS: Clear to auscultation (CTA). EXTREMITIES: Generalized edema. No clonus. Deep tendon reflexes (DTRs) + . Vital Signs/I&O Vital Signs Date Time Temp Pulse Resp B/P (MAP) Pulse Ox O2 Delivery O2 Flow Rate FiO2 01/19/20 14:04 80 144/77 (99) 01/19/20 13:34 98.1 18 Room Air Vital Signs Label Value Date Time Patient Temperature 98.1 degrees F 01/19/20 1334 Temperature Source Temporal 01/19/20 1334 Pulse 81 01/19/20 1334 Respiratory Rate 18 bpm 01/19/20 1334 Blood Pressure Assessment 162/80 (107) 01/19/20 1334 Source Automatic Cuff (NIBP) Pertinent Laboratoy Data Blood Type: O+ RBC Antibody Screen: Negative HIV: Negative Hepatitis B: Negative Hepatitis C: Negative Rapid Plasma Reagin: Nonreactive Rubella: Immune Chlamydia/Gonorrhea: Negative Steroid Therapy Steroid Therapy: Yes Date #1: Jan 18, 2020 Date #2: Jan 19, 2020 Reason severe range BPs Assessment Heart Rate (FHR): 130 Variability: Moderate Accelerations: Positive Decelerations: None Tocometer Multi-drug resistant Organism: No history of MDRO Assessment/Plan Assessment IUP at 36 weeks gestation CHTN with preeclampsia with severe features Pregestational diabetes: Class B Polyhydramnios Plan Admit to L&D per Dr. Brush. Patient received her last dose of betamethasone today. She has had multiple severe range BP's. The plan is to do a repeat section tomorrow. Patient also desires a tubal ligation as she is satisfied with her parity. Diet: regular now then clear liquid diet. Preeclamptic labs ordered along with routine labs. Anticipate doing a blood transfusion today as patient's last CBC was very low. Three units of PRBC to be started if H/H is still low. Labs and intravenous (IV) per unit protocol. Continue with monitoring. Patient difficult to monitor. May consider BPP tonight then intermittent monitoring Q4H due to difficulty with EFM. MARY PINTO CNM Jan 19, 2020 15:08
[2020-01-19 15:38] LABS: HEMATOCRIT 24.9 % (36.0-47.0); HEMOGLOBIN 7.6 g/dl (12.0-15.5); MEAN CORPUSCULAR HEMOGLOBIN 27.8 pg (27.0-33.0); MEAN CORPUSCULAR HGB CONC 30.5 g/dl (32.0-36.5); MEAN CORPUSCULAR VOLUME 91.2 fl (80.0-96.0); PLATELET COUNT, AUTOMATED 219 10^3/uL (150-450); RED BLOOD COUNT 2.73 10^6/uL (4.00-5.40); WHITE BLOOD COUNT 10.1 10^3/uL (4.0-10.0)
[2020-01-19 16:10] LABS: ALT/SGPT 17 U/L (12-78); BILIRUBIN,TOTAL 0.5 MG/DL (0.2-1.0); CREATININE FOR GFR 0.56 MG/DL (0.55-1.30); GLOMERULAR FILTRATION RATE > 60.0 (>60); LDH LACTATE DEHYDROGENASE 249 U/L (84-246); URIC ACID 7.8 MG/DL (2.6-6.0)
[2020-01-19] MEDS ORDERED: LABETALOL 100MG/20ML VIAL IV STA ×4 (17:15→18:57)
--- NOTE | 2020-01-19 17:18 | IPNPDOC ---
Obstetrical Progress Note Date of Service Jan 19, 2020 Subjective Patient denies any preeclamptic symptoms. Objective Vital Signs Date Time Temp Pulse Resp B/P (MAP) Pulse Ox O2 Delivery O2 Flow Rate FiO2 01/19/20 14:04 80 144/77 (99) 01/19/20 13:34 98.1 18 Room Air Vital Signs Label Value Date Time Patient Temperature 97.8 degrees F 01/19/20 1653 Temperature Source Temporal 01/19/20 1653 Pulse 80 01/19/20 1653 Respiratory Rate 18 bpm 01/19/20 1653 Blood Pressure Assessment 161/83 (109) 01/19/20 1653 Source Automatic Cuff (NIBP) Pulse 77 01/19/20 1709 Blood Pressure Assessment 162/76 (104) 01/19/20 1709 Source Automatic Cuff (NIBP) Item Value Date Time Hemoglobin 7.6 g/dl L 01/19/20 1525 Hematocrit 24.9 % L 01/19/20 1525 White Blood Count 10.1 10^3/uL H 01/19/20 1525 Red Blood Count 2.73 10^6/uL L 01/19/20 1525 Mean Corpuscular Volume 91.2 fl 01/19/20 1525 Mean Corpuscular Hemoglobin 27.8 pg 01/19/20 1525 Mean Corpuscular Hemoglobin Concent 30.5 g/dl L 01/19/20 1525 Red Cell Distribution Width 16.9 % H 01/19/20 1525 Platelet Count 219 10^3/uL 01/19/20 1525 Nucleated Red Blood Cells % (auto) 0.6 % H 01/19/20 1525 Assessment Heart Rate (FHR): 145 Variability: Moderate Accelerations: Positive Decelerations: None Heart Rate Tracing: Category I Tocometer Contractions: No Assessment and Plan Status: Reassuring Additional Comments consulted Dr. Brush. Labetalol 20 mg IV now for 2 severe range BP's. Patient sitting up in bed talking on phone. No changes in physical. 2+pitting edema in upper leg below knee and generalized edema in feet. 2+ reflexes. Second dose of Labetalol 20 mg IV given shortly after initial dose. MARY PINTO CNM Jan 19, 2020 17:18
[2020-01-19] MEDS: metFORMIN (GLUCOPHAGE) 1000 MG TABLET PO SCH (18:04)
[2020-01-19] MEDS ORDERED: ESCITALOPRAM OXALATE 10 MG TAB (LEXAPRO) PO SCH (21:00)
--- NOTE | 2020-01-19 22:14 | REPVR ---
PROCEDURE INFORMATION: Exam: US Biophysical Profile Without Non-Stress Test Exam date and time: 01/19/2020 9:47 PM Age: 34 years old Clinical indication: Condition or disease; Amniotic fluid abnormalities: ; Polyhdramnios - high volume; Third trimester; ; Additional info: Poly, preeclampsia, pregestational diabetes TECHNIQUE: Imaging protocol: US biophysical profile without non-stress testing. COMPARISON: US BPP W/O NON STRESS TEST 01/06/2020 7:51 AM FINDINGS: Heart rate: heart rate 149 bpm. Presentation: Fetus in transverse lie, head to is maternal left. Placenta: Anterior placenta without previa or abruption. BIOPHYSICAL PROFILE: Breathin/2 Gross body movements: 2/2 tone: 2/2 Qualitative amniotic fluid: 2/2 amniotic fluid volume index 26.9 cm consistent with polyhydramnios. Biophysical Profile Score: 8/8 IMPRESSION: 1. Biophysical profile score is 8 out of 8. 2. Polyhydramnios. 3. structural survey was not requested or performed at this time. Electronically signed by: Loi Quezada On 01/19/2020 22:14:24 PM
[2020-01-19] MEDS ORDERED: ACETAMINOPHEN 500 MG TAB PO PRN (23:00)
[2020-01-20] VITALS (22 sets, daily range): BP systolic 130–163; BP diastolic 59–85
[2020-01-20] MEDS ORDERED: hydrOXYzine 50 MG TAB PO ONE (01:30)
[2020-01-20] MEDS ORDERED: BICITRA 30ML SOLN UDC PO ONE (07:00)
[2020-01-20] MEDS ORDERED: ceFAZolin SOD 2 GM in IV 1 EA IV ONE (07:00)
[2020-01-20] MEDS ORDERED: LR 1,000 ML IV ONE (07:00)
[2020-01-20] MEDS: metFORMIN (GLUCOPHAGE) 1000 MG TABLET PO SCH (07:03)
[2020-01-20 07:27] LABS: HEMATOCRIT 29.7 % (36.0-47.0); MEAN CORPUSCULAR HGB CONC 30.3 g/dl (32.0-36.5); MEAN CORPUSCULAR VOLUME 92.5 fl (80.0-96.0); PLATELET COUNT, AUTOMATED 203 10^3/uL (150-450); RED BLOOD COUNT 3.21 10^6/uL (4.00-5.40); WHITE BLOOD COUNT 11.5 10^3/uL (4.0-10.0)
[2020-01-20] MEDS: LR 1,000 ML IV SCH ×3 (08:29→16:31)
[2020-01-20] MEDS ORDERED: MORPHINE PRES-FREE INJ 10 MG/10 ML VIAL (J2274) As Ordered ONE (08:46)
[2020-01-20] MEDS ORDERED: ONDANSETRON 4MG/2ML VIAL As Ordered ONE (08:47)
[2020-01-20] MEDS ORDERED: PHENYLephrine HCL 500 MCG/5 ML (100MCG/ML) SYRINGE (J2370) As Ordered ONE (08:47)
[2020-01-20] MEDS ORDERED: OXYTOCIN 30 UNITS IN 0.9% NaCl 500ML IV BAG (J2590) As Ordered ONE ×2 (08:47→12:15)
[2020-01-20] MEDS ORDERED: OXYTOCIN INJ 10 UNITS/ML VIAL (J2590) As Ordered ONE (08:47)
[2020-01-20] MEDS ORDERED: dexameTHASONE 4 MG/ML 1ML VIAL (J1100 PER 1MG) As Ordered ONE (08:47)
[2020-01-20] MEDS ORDERED: KETOROLAC 60MG 2ML VIAL As Ordered ONE (08:47)
[2020-01-20] MEDS ORDERED: ePHEDrine SULFATE 25 MG/5 ML(5MG/ML) SYRINGE As Ordered ONE (08:47)
[2020-01-20] MEDS ORDERED: ONDANSETRON 4MG/2ML VIAL IV PRN ×3 (09:40→11:30)
[2020-01-20] MEDS ORDERED: diphenhydrAMINE 50MG/ML VIAL (J1200) IV PRN (09:40)
[2020-01-20] MEDS ORDERED: METOCLOPRAMIDE INJ 10MG/2ML VIAL (J2765 PER 1) IV PRN (09:40)
[2020-01-20] MEDS ORDERED: NALBUPHINE HCL 10 MG/ML AMP (J2300) IV PRN (09:40)
[2020-01-20] MEDS ORDERED: NALOXONE INJ 0.4MG/1ML VIAL (J2310 PER 1MG) IV PRN ×2 (09:40)
[2020-01-20] MEDS ORDERED: hydrALAZINE 20MG/ML 1ML VIAL (J0360 PER 20MG) As Ordered ONE (10:11)
[2020-01-20] MEDS ORDERED: MIDAZOLAM INJ 2MG/2ML VIAL (J2250 PER 1MG) As Ordered ONE (10:16)
[2020-01-20] MEDS ORDERED: LABETALOL 100MG/20ML VIAL As Ordered ONE (10:17)
[2020-01-20] MEDS ORDERED: propofoL 200 MG/20 ML VIAL As Ordered ONE ×3 (10:19→10:37)
[2020-01-20 10:32] LABS: CORD GAS ABE V -2.9; CORD GAS HCO3 V 25.1 MEQ/L; CORD GAS O2 SAT V 40.2 %; CORD GAS PCO2 V 55.6 mmHg; CORD GAS PH V 7.273 UNITS; CORD GAS PO2 V 19.9 mmHg; CORD GAS SBC V 20.5 MEQ/L; CORD GAS TCO2 V 26.8 MEQ/L
[2020-01-20] MEDS ORDERED: fentaNYL 100 MCG/2 ML INJECTION (J3010) As Ordered ONE (10:33)
[2020-01-20 10:34] LABS: CORD GAS ABE A -3.7; CORD GAS HCO3 A 26.2 MEQ/L; CORD GAS O2 SAT A 17.8 %; CORD GAS PCO2 A 67.6 mmHg; CORD GAS PH A 7.207 UNITS; CORD GAS PO2 A 13.9 mmHg; CORD GAS SBC A 19.3 MEQ/L; CORD GAS TCO2 A 28.3 MEQ/L
[2020-01-20] MEDS ORDERED: OXYTOCIN DRIP 30 UNITS in IV 1 EA IV SCH (11:10)
[2020-01-20] MEDS ORDERED: ACETAMINOPHEN 1000MG 100ML IV BTL (OFIRMEV) (J0131 PER 10MG) As Ordered ONE (11:12)
[2020-01-20] MEDS ORDERED: RHOGAM 300 MCG (1500 IU) INJ (J2790) IM SCH (11:15)
[2020-01-20] MEDS ORDERED: PERCOCET 5MG/325MG TAB PO PRN (11:15)
[2020-01-20] MEDS ORDERED: MEASLES,MUMPS,RUBELLA VACCINE INJ (MMR-II) (90707) SC SCH (11:15)
[2020-01-20] MEDS ORDERED: LR 1,000 ML IV SCH (11:30)
[2020-01-20] MEDS ORDERED: fentaNYL 100 MCG/2 ML INJECTION (J3010) IV PRN (11:30)
[2020-01-20] MEDS ORDERED: oxyCODONE 5MG TAB PO PRN (11:30)
[2020-01-20] MEDS: KETOROLAC 30 MG/ML 1ML VIAL IV SCH (19:03)
[2020-01-21] VITALS (8 sets, daily range): BP systolic 138–170; BP diastolic 72–90
[2020-01-21] MEDS: KETOROLAC 30 MG/ML 1ML VIAL IV SCH ×2 (00:08→06:04)
[2020-01-21] MEDS: LR 1,000 ML IV SCH ×2 (00:09→08:09)
[2020-01-21] MEDS ORDERED: hydrOXYzine 50 MG TAB PO ONE (02:15)
[2020-01-21 07:11] LABS: HEMATOCRIT 30.1 % (36.0-47.0); HEMOGLOBIN 9.1 g/dl (12.0-15.5); MEAN CORPUSCULAR HEMOGLOBIN 28.1 pg (27.0-33.0); MEAN CORPUSCULAR HGB CONC 30.2 g/dl (32.0-36.5); MEAN CORPUSCULAR VOLUME 92.9 fl (80.0-96.0); PLATELET COUNT, AUTOMATED 213 10^3/uL (150-450); RED BLOOD COUNT 3.24 10^6/uL (4.00-5.40); WHITE BLOOD COUNT 11.7 10^3/uL (4.0-10.0)
[2020-01-21] MEDS: PRENATAL VITAMINS CHEWABLE TABLET PO SCH (09:07)
[2020-01-21] MEDS ORDERED: OXYC1TAB23 PO (09:39)
[2020-01-21] MEDS ORDERED: IBUP80TA PO (09:40)
[2020-01-21] MEDS: PERCOCET 5MG/325MG TAB PO PRN ×3 (10:57→18:50)
[2020-01-21] MEDS: IBUPROFEN 800 MG TAB PO SCH ×2 (14:55→22:04)
[2020-01-21] MEDS: DOCUSATE SODIUM 100 MG CAP PO PRN (22:03)
[2020-01-22] VITALS (11 sets, daily range): BP systolic 136–187; BP diastolic 74–100
[2020-01-22] MEDS: PERCOCET 5MG/325MG TAB PO PRN ×5 (00:04→22:25)
[2020-01-22] MEDS: IBUPROFEN 800 MG TAB PO SCH ×3 (06:12→22:24)
[2020-01-22] MEDS: LABETALOL 200 MG TAB PO SCH ×2 (06:13→21:01)
[2020-01-22] MEDS: PRENATAL VITAMINS CHEWABLE TABLET PO SCH (07:52)
[2020-01-22] MEDS ORDERED: BOOSTRIX/ADACEL VACCINE (DIPHTH/PERTUSS/ACELL/TETANUS) 0.5ML SYR IM ONE (09:00)
[2020-01-22] MEDS: DOCUSATE SODIUM 100 MG CAP PO PRN (20:57)
[2020-01-23 02:13] VITALS: BP 152/80
[2020-01-23] MEDS: PERCOCET 5MG/325MG TAB PO PRN ×2 (05:16→09:50)
[2020-01-23 06:43] VITALS: BP 164/86
[2020-01-23] MEDS: IBUPROFEN 800 MG TAB PO SCH (06:44)
[2020-01-23] MEDS: PRENATAL VITAMINS CHEWABLE TABLET PO SCH (08:53)
[2020-01-23 08:59] VITALS: BP 172/95
[2020-01-23] MEDS ORDERED: LABETALOL 100 MG TAB PO SCH (09:00)
[2020-01-23] MEDS ORDERED: LABE10TAB PO (09:17)
[2020-01-23 09:46] VITALS: BP 143/70
--- NOTE | 2020-01-27 12:07 | RO ---
DATE OF PROCEDURE: 01/20/2020 PREOPERATIVE DIAGNOSIS: 36-1/7 weeks gestation, preeclampsia, prior section. POSTOPERATIVE DIAGNOSIS: 36-1/7 weeks gestation, preeclampsia, prior section. PROCEDURE: Repeat low transverse section and bilateral tubal ligation. SURGEON: Berny Brush MD C++ QUANT DEVELOPER: Radha Menon CNM ANESTHESIA: Spinal. ESTIMATED BLOOD LOSS: 700 mL. URINE OUTPUT: 50 mL. IV FLUIDS: 1300 mL of lactated Ringer's (LR). FINDINGS: 4466 gram (9 pound 14 ounce) female , score 6 and 8., vertex. Normal uterus, fallopian tubes, and ovaries with the exception of a 5 cm peritoneal window in the lower uterine segment. DESCRIPTION OF PROCEDURE: The patient was taken to the operating room where spinal anesthesia was induced. She was prepped and draped in sterile fashion in the supine position. A Estrada catheter was placed. A Pfannenstiel skin incision was made with the scalpel and carried through to the fascia. The fascia was nicked and extended. The fascia was dissected off the rectus muscles. The peritoneal cavity was entered. A bladder flap was created. A peritoneal window was noted. A Mobius retractor was placed. A curvilinear incision was made in the lower uterine segment until bulging membranes were noted. This was extended manually. Membranes were ruptured with clear liquid. The was delivered from the vertex position with a single use of the vacuum extractor. The cord was doubly clamped and cut. The was handed off to the awaiting nurses. The placenta was expressed. The uterus was exteriorized and cleared of clots and debris. The uterine incision was closed with #0 Vicryl in a running locked fashion. A [id number] of suture was placed for hemostasis. The lower uterine segment was too thin to consider a second layer in the uterus. Attention was turned to the fallopian tubes. They were grasped with a Mario clamp in the mid portion. A window was created in the broad ligament bilaterally. A segment of tube was secured on either side with #3-0 chromic suture. A segment of tube was excised bilaterally. The uterus was placed back in the abdominal cavity. Due to the patient's breathing resulting in extreme Valsalva maneuver, the intestines were continually in the surgical field. This made closure of the peritoneum and remainder of the abdominal layers difficult. With great difficulty the peritoneum was closed. The fascia was closed with #0 Vicryl and the deep layer was irrigated and closed with #2-0 chromic. The skin was closed with #4-0 Monocryl subcuticular sutures. Sponge, instrument, and needle counts were correct. Radha Meonn CNM assisted throughout the procedure. She helped create each layer. She helped deliver the fetus. She helped subsequently close.
== END 2020-01-23 11:15 | disposition home or self-care (01) | DRG 785 ==
LOC: M LDO 13:07 → M LDI 14:43 → M OBS 01-20 12:27
PROVIDERS: ADMIT Advanced Practice Midwife; ATTEND Advanced Practice Midwife
PROC: 30233N1 Transfusion of Nonautologous Red Blood Cells into Peripheral Vein, Percutaneous Approach (ICD-10-PCS; 2020-01-19)
PROC: 0UB70ZZ Excision of Bilateral Fallopian Tubes, Open Approach (ICD-10-PCS; 2020-01-20)
PROC: 10D00Z1 Extraction of Products of Conception, Low, Open Approach (ICD-10-PCS; principal; 2020-01-20 10:20)
DX: O14.14 Severe pre-eclampsia complicating childbirth (principal); Z37.0 Single live birth; Z3A.36 36 weeks gestation of pregnancy; Z79.82 Long term (current) use of aspirin; Z79.899 Other long term (current) drug therapy; O34.211 Maternal care for low transverse scar from previous cesarean delivery; O40.3XX0 Polyhydramnios, third trimester, not applicable or unspecified

== ENCOUNTER → 2020-04-13 | Outpatient (CLI) | payer OTHER ==
[~2020-04-13] MED LIST changes: +ALBU8.5H INH; -ASPI81TA85 PO; +ASPI81TA86 PO; +LABE10TAB PO; +SUMA50TA2 PO
[2020-04-13 19:59] LABS: BLOOD UREA NITROGEN 15 MG/DL (7-18); CALCIUM LEVEL 8.9 MG/DL (8.5-10.1); CARBON DIOXIDE LEVEL 26 MEQ/L (21-32); CHLORIDE LEVEL 103 MEQ/L (98-107); CREATININE FOR GFR 0.57 MG/DL (0.55-1.30); GLOMERULAR FILTRATION RATE > 60.0 (>60); GLUCOSE, FASTING 94 MG/DL (70-100); POTASSIUM SERUM 4.3 MEQ/L (3.5-5.1); SODIUM LEVEL 138 MEQ/L (136-145)
== END ==
LOC: M WUC 15:55
PROVIDERS: ATTEND Physician Assistant
DX: R73.03 Prediabetes (principal)

== ENCOUNTER → 2020-05-28 | Outpatient (CLI) | payer OTHER | LOC: M LABSMTC 12:50 | PROVIDERS: ATTEND Pediatrics | DX: Z20.828 Contact with and (suspected) exposure to other viral communicable diseases (principal) ==

== ENCOUNTER → 2020-06-07 | Outpatient (CLI) | payer OTHER ==
[~2020-06-07] MED LIST changes: +LABE100T4 PO; -LABE10TAB PO
[2020-06-07 12:43] LABS: ALBUMIN 3.9 GM/DL (3.2-5.2); ALT/SGPT 47 U/L (12-78); BILIRUBIN,TOTAL 0.7 MG/DL (0.2-1.0); BLOOD UREA NITROGEN 18 MG/DL (7-18); C REACTIVE PROTEIN QUANTITATIV 1.34 MG/DL (0.00-0.30); CALCIUM LEVEL 9.4 MG/DL (8.5-10.1); CARBON DIOXIDE LEVEL 23 MEQ/L (21-32); CHLORIDE LEVEL 103 MEQ/L (98-107); CHOLESTEROL LEVEL 254 MG/DL (<200); CHOLESTEROL RISK RATIO 9.071 (<5); CREATININE FOR GFR 0.55 MG/DL (0.55-1.30); GLOMERULAR FILTRATION RATE > 60.0 (>60); GLUCOSE, FASTING 101 MG/DL (70-100); HDL CHOLESTEROL 28 MG/DL (>40); NON-HDL-C 226 MG/DL; POTASSIUM SERUM 3.8 MEQ/L (3.5-5.1); RHEUMATOID FACTOR QUANT < 10.0 IU/ML (<15.0); SODIUM LEVEL 134 MEQ/L (136-145); TOTAL PROTEIN 7.4 GM/DL (6.4-8.2); TRIGLYCERIDES LEVEL 772 MG/DL (<150)
[2020-06-07 12:46] LABS: HEPATITIS B SURFACE ANTIBODY POSITIVE (POSITIVE)
[2020-06-07 12:56] LABS: HEPATITIS B SURFACE ANTIGEN NEGATIVE (NEGATIVE)
[2020-06-07 13:13] LABS: HEMOGLOBIN A1c 5.7 %
[2020-06-07 13:25] LABS: HEPATITIS B CORE ANTIBODY IGM NEGATIVE (NEGATIVE)
[2020-06-07 13:26] LABS: HEPATITIS A ANTIBODY IGM NEGATIVE (NEGATIVE)
[2020-06-10 06:08] LABS: ANA (HEP2) Negative (.); CYCLIC CITRULLINATED PEPTIDE 7 units (0-19); HEPATITIS A IgG TOTAL Negative (Negative); Lyme Disease IgG/IgM Antibodie <0.91 ISR (0.00-0.90); Lyme Disease IgM Ab Quantitati <0.80 index (0.00-0.79)
== END ==
LOC: M WUC 10:10
PROVIDERS: ATTEND Family Medicine
DX: K75.81 Nonalcoholic steatohepatitis (NASH) (principal); E11.9 Type 2 diabetes mellitus without complications; M25.50 Pain in unspecified joint

== ENCOUNTER → 2020-06-09 | Outpatient (CLI) | payer OTHER ==
[2020-06-09 13:43] LABS: INR 0.92; PROTHROMBIN TIME 12.5 SECONDS (12.5-14.3)
[2020-06-09 13:53] LABS: ALBUMIN 3.8 GM/DL (3.2-5.2); ALT/SGPT 50 U/L (12-78); BILIRUBIN,DIRECT < 0.1 MG/DL (0.0-0.2); BILIRUBIN,TOTAL 0.7 MG/DL (0.2-1.0); FERRITIN 17 NG/ML (8-252); IRON (FE) 59 UG/DL (50-170); PERCENT SATURATION 14.4 % (13.2-45.0); TOTAL IRON BINDING CAPACITY 410 UG/DL (250-450); TOTAL PROTEIN 7.2 GM/DL (6.4-8.2)
[2020-06-10 11:54] LABS: ALBUMIN 4.46 GM/DL (3.29-5.55); ALPHA-1-GLOBULINS 0.29 GM/DL (0.17-0.41); ALPHA-2-GLOBULINS 0.82 GM/DL (0.42-0.99); ALPHA-2-GLOBULINS % 11.4 % (7.1-11.8); BETA-1-GLOBULINS 0.49 GM/DL (0.28-0.60); BETA-1-GLOBULINS % 6.8 % (4.7-7.2); BETA-2-GLOBULINS 0.42 GM/DL (0.19-0.55); BETA-2-GLOBULINS % 5.9 % (3.2-6.5); GAMMA GLOBULIN % 9.9 % (11.1-18.8); GAMMA GLOBULINS 0.71 GM/DL (0.65-1.58)
[2020-06-10 16:12] LABS: ALPHA 1 ANTITRYPSIN 111 mg/dL (100-188); ANTI-MITOCHONDRIAL ANTIBODY <20.0 Units (0.0-20.0); ANTI-SMOOTH MUSCLE ANTIBODY 7 Units (0-19); ANTINUCLEAR ANTIBODIES DIRECT Negative (Negative); CERULOPLASMIN 28.9 mg/dL (19.0-39.0); LIVER-KIDNEY MICROSOMAL ABY <20.1 Units (0.0-20.0); TISSUE TRANSGLUTAMINASE IgA <2 U/mL (0-3)
== END ==
LOC: M WUC 09:53
PROVIDERS: ATTEND Internal Medicine Gastroenterology
DX: K76.0 Fatty (change of) liver, not elsewhere classified (principal); K76.89 Other specified diseases of liver; R94.5 Abnormal results of liver function studies; R19.07 Generalized intra-abdominal and pelvic swelling, mass and lump

== ENCOUNTER → 2020-06-16 | Outpatient (CLI) | payer OTHER ==
--- NOTE | 2020-06-16 11:19 | REP ---
INDICATION: ELEVATED LFT'S. Hepato steatosis and multiple regenerative hepatic nodules are identified on the comparison CT dated 04/15/2020 and the comparison hepatic MRI dated 05/06/2020. COMPARISON: Abdomen and pelvis CT dated 04/15/2020 and hepatic MRI dated 05/06/2020. TECHNIQUE: Multiple real-time ultrasonographic images of the abdominal right upper quadrant. FINDINGS: There is no cholelithiasis, gallbladder wall thickening or pericholecystic fluid. There is no intrahepatic or extrahepatic biliary duct dilatation. The common biliary duct measures 4.8 mm in diameter. The liver is enlarged measuring up to 27.3 cm craniocaudad. The hepatic parenchyma is diffusely hyperechoic compatible with hepato steatosis. There are multiple hypodense nodules throughout both right and left lobes of the liver not significantly changed from the comparison studies. Two medical representative nodules in the right lobe measures 3.8 x 4.1 by 5.0 cm and 2.0 by 1.4 x 2.0 cm. Two medical representative lesions in the left lobe measures 3.1 x 1.9 x 3.6 cm and 2.9 x 1.5 x 2.4 cm. Of these are compatible with of the regenerative nodules identified on the comparison studies. The visualized areas of the pancreatic head and tail are unremarkable of the head and body are unremarkable. The tail is obscured by bowel gas. The right kidney is normal size measuring 13.2 x 6.2 x 5.2 cm. There are no solid or cystic renal masses. There is no right renal calculus. The right renal pelvis is dilated. This is a change from the comparison CT and MRI and may be from patient hydration. There is no free fluid in the abdominal right upper quadrant. IMPRESSION: Echogenic hepatic parenchyma compatible with hepatosteatosis. Multiple hypodense nodules throughout the hepatic parenchyma similar in appearance to the comparison CT and MRI compatible with regenerative nodules. Hepatomegaly. Dilated right renal pelvis is a change from the comparison studies. This may represent patient hydration. No right upper quadrant free fluid. <Electronically signed by Con Valadez > 06/16/20 [id number]
== END ==
LOC: M RAD 07:37
PROVIDERS: ATTEND Internal Medicine Gastroenterology
DX: R94.5 Abnormal results of liver function studies (principal); K76.0 Fatty (change of) liver, not elsewhere classified; K76.89 Other specified diseases of liver; R19.07 Generalized intra-abdominal and pelvic swelling, mass and lump

== ENCOUNTER → 2020-12-14 | Outpatient (CLI) | payer OTHER ==
[~2020-12-14] MED LIST changes: +GLYB2.5T7 PO; -GLYB25TA PO
--- NOTE | 2020-12-14 15:04 | REP ---
INDICATION: NODULAR REGENERATIVE HYPERPLASIA OF LIVER COMPARISON: 06/16/2020 TECHNIQUE: Real time segundo scale ultrasound examination using curved array transducer. FINDINGS: Liver is hyperechoic and demonstrates multiple scattered hypoechoic lesions measuring up to 2.8 cm maximal diameter and consistent with the given history of regenerative hyperplastic changes. The gallbladder is normal. No biliary ductal dilatation is appreciated and the common bile duct measures 5 mm diameter. Visualized portions of the pancreas are unremarkable. Right kidney is normal in reniform shape without hydronephrosis and measures 14.0 x 7.6 x 4.7 cm. No ascites in the visualized right upper quadrant. IMPRESSION: Hepatosteatosis/hepatocellular disease and scattered hepatic lesions up to 2.8 cm consistent with the given history of regenerative hyperplastic changes <Electronically signed by Juan Pablo Chavez > 12/14/20 1500
== END ==
LOC: M RAD 08:10
PROVIDERS: ATTEND Student in an Organized Health Care Education/Training Program
DX: K76.89 Other specified diseases of liver (principal)

== ENCOUNTER → 2021-06-06 | Outpatient (CLI) | payer BC ==
[~2021-06-06] MED LIST changes: +OMEP40CA4 PO; -OMEP40CA97 PO
[2021-06-06 13:07] LABS: ALBUMIN 3.4 GM/DL (3.2-5.2); ALT/SGPT 73 U/L (12-78); BILIRUBIN,DIRECT < 0.1 MG/DL (0.0-0.2); CHOLESTEROL LEVEL 338 MG/DL (<200); CHOLESTEROL RISK RATIO 11.266 (<5); HDL CHOLESTEROL 30 MG/DL (>40); NON-HDL-C 308 MG/DL; TOTAL 25(OH) VITAMIN D 8.4 NG/ML (30.0-100.0); TOTAL PROTEIN 7.2 GM/DL (6.4-8.2); TRIGLYCERIDES LEVEL 2942 MG/DL (<150)
== END ==
LOC: M WUC 09:51
PROVIDERS: ATTEND Internal Medicine Gastroenterology
DX: K76.0 Fatty (change of) liver, not elsewhere classified (principal); K76.89 Other specified diseases of liver; R94.5 Abnormal results of liver function studies; E55.9 Vitamin D deficiency, unspecified

== ENCOUNTER → 2021-06-06 | Outpatient (CLI) | payer BC ==
[2021-06-06 12:00] LABS: HEMOGLOBIN A1c 8.7 %
[2021-06-06 13:01] LABS: ALBUMIN 3.4 GM/DL (3.2-5.2); ALT/SGPT 72 U/L (12-78); BLOOD UREA NITROGEN 12 MG/DL (7-18); CALCIUM LEVEL 7.6 MG/DL (8.5-10.1); CARBON DIOXIDE LEVEL 25 MEQ/L (21-32); CHLORIDE LEVEL 96 MEQ/L (98-107); CREATININE FOR GFR 0.43 MG/DL (0.55-1.30); GLOMERULAR FILTRATION RATE > 60.0 (>60); GLUCOSE, FASTING 223 MG/DL (70-100); SODIUM LEVEL 131 MEQ/L (136-145); TOTAL PROTEIN 7.3 GM/DL (6.4-8.2)
== END ==
LOC: M WUC 09:49
PROVIDERS: ATTEND Family Medicine
DX: E11.9 Type 2 diabetes mellitus without complications (principal)

== ENCOUNTER → 2021-06-13 | Outpatient (CLI) | payer BC, OTHER ==
--- NOTE | 2021-06-13 08:44 | REP ---
INDICATION: ELEVATED LFT'S COMPARISON: 12/14/2020 TECHNIQUE: Real time segundo scale ultrasound examination using curved array transducer. FINDINGS: Liver again demonstrates multiple cysts measuring up to 3.5 cm maximal diameter. Pancreas is incompletely evaluated due to interposed bowel gas. The gallbladder is normal and without gallstones, wall thickening, or pericholecystic fluid. Common bile duct is upper limits of normal at 7 mm diameter, but no evidence for intrahepatic biliary ductal dilatation is appreciated.. Right kidney is normal in reniform shape without hydronephrosis and measures 13.1 x 6.9 x 4.5 cm. No ascites in the visualized right upper quadrant. IMPRESSION: 1. No significant change from prior examination. Continued hepatic cysts again noted. <Electronically signed by Juan Pablo Chavez > 06/13/21 1101
== END ==
LOC: M RAD 07:52
PROVIDERS: ATTEND Internal Medicine Gastroenterology
DX: K76.0 Fatty (change of) liver, not elsewhere classified (principal); K76.89 Other specified diseases of liver; R94.5 Abnormal results of liver function studies; E55.9 Vitamin D deficiency, unspecified

== ENCOUNTER → 2021-09-27 | Outpatient (CLI) | payer BC ==
[2021-09-27 13:10] LABS: BASO # 0.1 10^3/uL (0.0-0.2); BASO % 0.5 % (0.0-1.0); EOS # 0.2 10^3/uL (0.0-0.5); EOS % 1.5 % (0.0-3.0); HEMATOCRIT 37.8 % (36.0-47.0); HEMOGLOBIN 11.7 g/dl (12.0-15.5); LYMPH % 43.4 % (24.0-44.0); MEAN CORPUSCULAR HEMOGLOBIN 28.7 pg (27.0-33.0); MEAN CORPUSCULAR VOLUME 92.9 fl (80.0-96.0); MONO # 0.7 10^3/uL (0.0-0.8); MONO % 6.1 % (2.0-8.0); NEUTROPHILS # 5.6 10^3/uL (1.5-8.5); NEUTROPHILS % 48.3 % (36.0-66.0); PLATELET COUNT, AUTOMATED 394 10^3/uL (150-450); RED BLOOD COUNT 4.07 10^6/uL (4.00-5.40); WHITE BLOOD COUNT 11.6 10^3/uL (4.0-10.0)
[2021-09-27 13:38] LABS: ALBUMIN 4.3 GM/DL (3.2-5.2); ALT/SGPT 47 U/L (12-78); BILIRUBIN,TOTAL 1.5 MG/DL (0.2-1.0); BLOOD UREA NITROGEN 17 MG/DL (7-18); CALCIUM LEVEL 9.1 MG/DL (8.5-10.1); CARBON DIOXIDE LEVEL 29 MEQ/L (21-32); CHLORIDE LEVEL 107 MEQ/L (98-107); CHOLESTEROL LEVEL 172 MG/DL (<200); CHOLESTEROL RISK RATIO 6.142 (<5); GLOMERULAR FILTRATION RATE > 60.0 (>60); GLUCOSE, FASTING 99 MG/DL (70-100); HDL CHOLESTEROL 28 MG/DL (>40); LDL CHOLESTEROL 87 MG/DL (<100); NON-HDL-C 144 MG/DL; SODIUM LEVEL 140 MEQ/L (136-145); TOTAL PROTEIN 7.6 GM/DL (6.4-8.2); TRIGLYCERIDES LEVEL 286 MG/DL (<150)
[2021-09-27 14:15] LABS: MAU/CREAT RATIO 327.8 MCG/MG (0.0-30.0)
[2021-09-27 14:24] LABS: HEMOGLOBIN A1c 6.1 %
== END ==
LOC: M WUC 09:18
PROVIDERS: ATTEND Family Medicine
DX: E78.2 Mixed hyperlipidemia (principal); E11.65 Type 2 diabetes mellitus with hyperglycemia

== ENCOUNTER → 2021-11-10 | Outpatient (REF) | LOC: M LABSMTC 11:34 | PROVIDERS: ATTEND Family Medicine | DX: Z11.52 Encounter for screening for COVID-19 (principal) ==

== ENCOUNTER → 2022-09-26 | Outpatient (REF) ==
[~2022-09-26] MED LIST changes: -LABE100T4 PO; +LABE100T6 PO; -LABE300T2 PO; +LABE300T55 PO
== END ==
LOC: M EMP 12:02
PROVIDERS: ATTEND Family Medicine
DX: Z11.52 Encounter for screening for COVID-19 (principal)

== ENCOUNTER 2022-12-01 19:19 | Emergency (ER) | payer BC ==
[~2022-12-01] VITALS: Ht 172.7 cm; Wt 105.0 kg
[2022-12-01] MEDS ORDERED: IPRATROPIUM 0.5MG/ALBUTEROL 2.5MG INH SOL UD 3ML (DUONEB) NEB ONE (19:50)
[2022-12-01 20:08] LABS: BASO # 0.1 10^3/uL (0.0-0.2); BASO % 0.6 % (0.0-1.0); EOS # 0.1 10^3/uL (0.0-0.5); EOS % 0.6 % (0.0-3.0); HEMATOCRIT 29.5 % (36.0-47.0); HEMOGLOBIN 9.2 g/dl (12.0-15.5); LYMPH # 2.6 10^3/uL (1.5-5.0); MEAN CORPUSCULAR HEMOGLOBIN 26.3 pg (27.0-33.0); MEAN CORPUSCULAR HGB CONC 31.2 g/dl (32.0-36.5); MEAN CORPUSCULAR VOLUME 84.3 fl (80.0-96.0); MONO # 0.9 10^3/uL (0.0-0.8); MONO % 8.9 % (2.0-8.0); NEUTROPHILS % 62.5 % (36.0-66.0); PLATELET COUNT, AUTOMATED 358 10^3/uL (150-450); WHITE BLOOD COUNT 9.6 10^3/uL (4.0-10.0)
[2022-12-01] MEDS ORDERED: KETOROLAC 30 MG/ML 1ML VIAL IV ONE (20:20)
[2022-12-01 20:28] LABS: CK-MB VALUE MASS < 1.0 NG/ML (<3.6); LIPASE 43 U/L (12-53)
[2022-12-01 20:30] LABS: CPK CREATINE PHOSPHOKINASE 93 U/L (34-145); MB/CK RELATIVE INDEX 1.07 (< OR =4)
[2022-12-01 20:31] LABS: ALBUMIN 3.8 G/DL (3.2-5.2); ALKALINE PHOSPHATASE 120 U/L (46-116); ALT/SGPT 43 U/L (7.0-40); AST/SGOT 43 U/L (<34); BILIRUBIN,DIRECT 0.2 MG/DL (<0.4); BILIRUBIN,TOTAL 0.8 MG/DL (0.3-1.2); BLOOD UREA NITROGEN 13 MG/DL (9-23); CALCIUM LEVEL 8.7 MG/DL (8.5-10.1); CARBON DIOXIDE LEVEL 20 MMOL/L (20-31); CHLORIDE LEVEL 102 MMOL/L (98-107); CREATININE FOR GFR 0.58 MG/DL (0.55-1.30); GLOMERULAR FILTRATION RATE > 60.0 (>60); GLUCOSE, FASTING 236 MG/DL (60-100); POTASSIUM SERUM 3.8 MMOL/L (3.5-5.1); SODIUM LEVEL 133 MMOL/L (136-145); TOTAL PROTEIN 7.2 G/DL (5.7-8.2)
[2022-12-01 20:32] LABS: THYROID STIMULATING HORMONE 2.338 uIU/ML (0.55-4.78)
[2022-12-01] MEDS ORDERED: NS 1,000 ML IV ONE (20:55)
[2022-12-01] MEDS ORDERED: ISOVUE-370 76% 100ML VIAL As Ordered ONE (20:57)
[2022-12-01 21:17] LABS: CK-MB VALUE MASS < 1.0 NG/ML (<3.6)
[2022-12-01 21:20] LABS: CPK CREATINE PHOSPHOKINASE 103 U/L (34-145); MB/CK RELATIVE INDEX 0.97 (< OR =4)
[2022-12-01] MEDS ORDERED: ASPIRIN 81MG CHEW TABLET PO ONE (21:30)
[2022-12-01] MEDS: NITROGLYCERIN 0.4MG SUBL TABLET SL PRN ×3 (21:42→21:53)
[2022-12-01 23:08] LABS: CK-MB VALUE MASS 4.9 NG/ML (<3.6); MB/CK RELATIVE INDEX 2.41 (< OR =4)
[2022-12-01] MEDS ORDERED: LABETALOL 100MG/20ML VIAL IV STA (23:16)
[2022-12-01 23:25] VITALS: BP 185/101
[2022-12-01] MEDS ORDERED: HEPARIN DRIP 25,000 UNITS in IV 1 EA IV SCH (23:30)
[2022-12-01 23:59] LABS: INR 0.98; PROTHROMBIN TIME 13.2 SECONDS (12.5-14.5)
[2022-12-02] LABS: PARTIAL THROMBOPLASTIN TIME 21.1 SECONDS (24.8-34.2)
[2022-12-02 00:05] VITALS: BP 155/100
[2022-12-02] MEDS ORDERED: ONDANSETRON 4MG 2ML VIAL IV ONE (00:10)
== END 2022-12-02 00:13 | disposition short-term general hospital (02) ==
LOC: M ED 19:19
DX: I21.4 Non-ST elevation (NSTEMI) myocardial infarction (principal); J45.909 Unspecified asthma, uncomplicated; I10 Essential (primary) hypertension; K21.9 Gastro-esophageal reflux disease without esophagitis; F32.A Depression, unspecified; G43.909 Migraine, unspecified, not intractable, without status migrainosus; Z79.83 Long term (current) use of bisphosphonates; Z79.810 Long term (current) use of selective estrogen receptor modulators (SERMs); Z79.899 Other long term (current) drug therapy
CPT/HCPCS: 71045; 71275; 74177; 80048; 80076; 82550; 82553; 83690; 84443; 84484; 85025; 85610; 85730; 87486; 87581; 87633; 87798; 93005; 93041; 94640; 94760; 96361; 96374; 96375; 99285; J1885; J2405; Q9967

== ENCOUNTER → 2022-12-11 | Outpatient (REF) | payer BC ==
[2022-12-11 13:33] LABS: BASO # 0.1 10^3/uL (0.0-0.2); BASO % 0.7 % (0.0-1.0); EOS # 0.1 10^3/uL (0.0-0.5); EOS % 1.2 % (0.0-3.0); HEMATOCRIT 31.7 % (36.0-47.0); HEMOGLOBIN 9.3 g/dl (12.0-15.5); LYMPH # 2.6 10^3/uL (1.5-5.0); LYMPH % 31.4 % (24.0-44.0); MEAN CORPUSCULAR HEMOGLOBIN 26.3 pg (27.0-33.0); MEAN CORPUSCULAR HGB CONC 29.3 g/dl (32.0-36.5); MEAN CORPUSCULAR VOLUME 89.8 fl (80.0-96.0); MONO # 0.5 10^3/uL (0.0-0.8); PLATELET COUNT, AUTOMATED 363 10^3/uL (150-450); RED BLOOD COUNT 3.53 10^6/uL (4.00-5.40); WHITE BLOOD COUNT 8.3 10^3/uL (4.0-10.0)
[2022-12-11 13:51] LABS: PERCENT SATURATION 9.2 % (13.2-45.0)
[2022-12-11 13:53] LABS: FOLATE 15.7 NG/ML (>5.4)
== END ==
LOC: M LAB REF 12:55
PROVIDERS: ATTEND Nurse Practitioner Adult Health
DX: D64.9 Anemia, unspecified (principal)

== ENCOUNTER 2022-12-21 07:50 | Outpatient (CLI) | payer BC ==
[~2022-12-21] VITALS: Ht 172.7 cm; Wt 100.0 kg
[~2022-12-21 07:50] MED LIST changes: +ASPI81TA26 PO; +CLOP75TA99 PO; +CORE6.25 PO; +EFFE150C2 PO; +LIPI80TA PO; +SEMA2PEN SQ; +VASC1CAP2 PO
[2022-12-21 13:27] VITALS: BP 132/76; O2SAT 98
[2022-12-21] MEDS ORDERED: FERRIC CARBOXYMALTOSE INJ 750 MG in NS 250 ML (>50kg) IV ONE ×3 (13:30)
[2022-12-21 14:53] VITALS: BP 131/75; O2SAT 100
== END 2022-12-21 14:45 | disposition home or self-care (01) ==
LOC: M INFU 07:50
PROVIDERS: ATTEND Nurse Practitioner Adult Health
DX: D50.9 Iron deficiency anemia, unspecified (principal)
CPT/HCPCS: 96365; J1439

== ENCOUNTER → 2023-01-03 | Outpatient (CLI) | payer BC ==
[2023-01-03 14:33] LABS: BASO # 0.1 10^3/uL (0.0-0.2); EOS # 0.1 10^3/uL (0.0-0.5); EOS % 1.8 % (0.0-3.0); HEMATOCRIT 36.5 % (36.0-47.0); HEMOGLOBIN 11.6 g/dl (12.0-15.5); LYMPH # 2.2 10^3/uL (1.5-5.0); LYMPH % 30.2 % (24.0-44.0); MEAN CORPUSCULAR HEMOGLOBIN 29.7 pg (27.0-33.0); MEAN CORPUSCULAR HGB CONC 31.8 g/dl (32.0-36.5); MEAN CORPUSCULAR VOLUME 93.6 fl (80.0-96.0); MONO # 0.4 10^3/uL (0.0-0.8); MONO % 5.9 % (2.0-8.0); NEUTROPHILS # 4.4 10^3/uL (1.5-8.5); PLATELET COUNT, AUTOMATED 276 10^3/uL (150-450); WHITE BLOOD COUNT 7.1 10^3/uL (4.0-10.0)
[2023-01-03 14:45] LABS: ALBUMIN 3.9 G/DL (3.2-5.2); ALKALINE PHOSPHATASE 97 U/L (46-116); ALT/SGPT < 9 U/L (7.0-40); AST/SGOT 13 U/L (<34); BILIRUBIN,TOTAL 0.9 MG/DL (0.3-1.2); BLOOD UREA NITROGEN 12 MG/DL (9-23); CARBON DIOXIDE LEVEL 20 MMOL/L (20-31); CHLORIDE LEVEL 108 MMOL/L (98-107); CREATININE FOR GFR 0.46 MG/DL (0.55-1.30); GLOMERULAR FILTRATION RATE > 60.0 (>60); GLUCOSE, FASTING 124 MG/DL (60-100); POTASSIUM SERUM 3.8 MMOL/L (3.5-5.1); SODIUM LEVEL 137 MMOL/L (136-145); TOTAL PROTEIN 6.8 G/DL (5.7-8.2)
[2023-01-03 14:56] LABS: HEMOGLOBIN A1c 5.2 % (4.0-6.0)
== END ==
LOC: M WUC 10:16
PROVIDERS: ATTEND Nurse Practitioner Adult Health
DX: D64.9 Anemia, unspecified (principal); E11.65 Type 2 diabetes mellitus with hyperglycemia

== ENCOUNTER → 2023-01-30 | Outpatient (CLI) | payer BC | LOC: M RAD 10:50 | PROVIDERS: ATTEND Advanced Practice Midwife | DX: N92.1 Excessive and frequent menstruation with irregular cycle (principal); N88.8 Other specified noninflammatory disorders of cervix uteri ==

== ENCOUNTER → 2023-02-07 | Outpatient (CLI) | payer BC ==
[2023-02-07 18:06] LABS: HEMATOCRIT 21.9 % (36.0-47.0); MEAN CORPUSCULAR HEMOGLOBIN 30.3 pg (27.0-33.0); MEAN CORPUSCULAR HGB CONC 29.2 g/dl (32.0-36.5); MEAN CORPUSCULAR VOLUME 103.8 fl (80.0-96.0); PLATELET COUNT, AUTOMATED 342 10^3/uL (150-450); RED BLOOD COUNT 2.11 10^6/uL (4.00-5.40); WHITE BLOOD COUNT 6.8 10^3/uL (4.0-10.0)
[2023-02-07 18:14] LABS: HEMOGLOBIN 6.4 g/dl (12.0-15.5)
[2023-02-07 18:32] LABS: FERRITIN 36.8 NG/ML (7.3-270.7)
== END ==
LOC: M PLALAB 15:23
PROVIDERS: ATTEND Advanced Practice Midwife
DX: N92.1 Excessive and frequent menstruation with irregular cycle (principal)

== ENCOUNTER → 2023-02-14 | Outpatient (CLI) | payer BC | LOC: M LAB 14:10 | PROVIDERS: ATTEND Advanced Practice Midwife | DX: D64.9 Anemia, unspecified (principal) ==

== ENCOUNTER 2023-02-15 07:22 | Outpatient (CLI) | payer BC ==
[~2023-02-15] VITALS: Ht 172.7 cm; Wt 97.7 kg
[2023-02-15 07:34] VITALS: BP 133/72; O2SAT 99
[2023-02-15 07:48] VITALS: BP 133/72; TEMP 97.3; O2SAT 99
[2023-02-15 08:06] VITALS: BP 128/82; TEMP 97.8; O2SAT 100
[2023-02-15] MEDS ORDERED: diphenhydrAMINE 50MG/ML VIAL IV PRN (08:30)
[2023-02-15 09:22] VITALS: BP 128/68; TEMP 97.6; O2SAT 98
[2023-02-15 09:50] VITALS: BP 119/66; TEMP 97.1; O2SAT 96
[2023-02-15 11:15] VITALS: BP 124/79; TEMP 97.8; O2SAT 97
== END 2023-02-15 11:15 | disposition home or self-care (01) ==
LOC: M INFU 07:22
PROVIDERS: ATTEND Advanced Practice Midwife
DX: D64.9 Anemia, unspecified (principal)
CPT/HCPCS: 36430; P9016

== ENCOUNTER → 2023-03-23 | Outpatient (CLI) | payer BC ==
[2023-03-23 13:02] LABS: HEMATOCRIT 37.8 % (36.0-47.0); HEMOGLOBIN 11.8 g/dl (12.0-15.5); MEAN CORPUSCULAR HEMOGLOBIN 29.4 pg (27.0-33.0); MEAN CORPUSCULAR HGB CONC 31.2 g/dl (32.0-36.5); PLATELET COUNT, AUTOMATED 350 10^3/uL (150-450); RED BLOOD COUNT 4.02 10^6/uL (4.00-5.40); WHITE BLOOD COUNT 9.4 10^3/uL (4.0-10.0)
== END ==
LOC: M LAB 11:55
PROVIDERS: ATTEND Advanced Practice Midwife
DX: N92.1 Excessive and frequent menstruation with irregular cycle (principal)

== ENCOUNTER → 2023-05-28 | Outpatient (REF) ==
[2023-05-28 12:35] LABS: RSV AMPLIFICATION NEGATIVE (NEGATIVE)
== END ==
LOC: M EMP 09:17
PROVIDERS: ATTEND Family Medicine
DX: Z11.52 Encounter for screening for COVID-19 (principal)

== ENCOUNTER → 2023-08-06 | Outpatient (CLI) | payer BC ==
[~2023-08-06] MED LIST changes: -EFFE150C2 PO; +EFFE150C3 PO
[2023-08-06 14:33] LABS: LIPASE 48 U/L (12-53)
[2023-08-06 14:35] LABS: ALKALINE PHOSPHATASE 96 U/L (46-116); ALT/SGPT 28 U/L (7.0-40); AST/SGOT 16 U/L (<34); BILIRUBIN,TOTAL 1.7 MG/DL (0.3-1.2); BLOOD UREA NITROGEN 10 MG/DL (9-23); CARBON DIOXIDE LEVEL 26 MMOL/L (20-31); CHLORIDE LEVEL 102 MMOL/L (98-107); CHOLESTEROL LEVEL 135 MG/DL (<200); CHOLESTEROL RISK RATIO 4.05 (<5); CREATININE FOR GFR 0.51 MG/DL (0.55-1.30); GLOMERULAR FILTRATION RATE > 60.0 (>60); GLUCOSE, FASTING 73 MG/DL (60-100); HDL CHOLESTEROL 33.3 MG/DL (>40); LDL CHOLESTEROL 41.1 MG/DL (<100); MAGNESIUM LEVEL 1.7 MG/DL (1.8-2.4); NON-HDL-C 101.7 MG/DL; POTASSIUM SERUM 3.7 MMOL/L (3.5-5.1); SODIUM LEVEL 136 MMOL/L (136-145); TOTAL 25(OH) VITAMIN D 60.2 NG/ML (20.0-100.0); TOTAL PROTEIN 7.7 G/DL (5.7-8.2); TRIGLYCERIDES LEVEL 303 MG/DL (<150); VITAMIN B12 LEVEL 430 PG/ML (211-911)
== END ==
LOC: M WUC 10:39
PROVIDERS: ATTEND Internal Medicine Gastroenterology
DX: K21.9 Gastro-esophageal reflux disease without esophagitis (principal); K76.0 Fatty (change of) liver, not elsewhere classified; E56.9 Vitamin deficiency, unspecified; E66.9 Obesity, unspecified

== ENCOUNTER → 2023-08-06 | Outpatient (CLI) | payer BC ==
[~2023-08-06] MED LIST changes: +LABE300T28 PO; -LABE300T55 PO; +MONT5TAB7 PO; -SING5CHW23 PO
[2023-08-06 14:13] LABS: BASO # 0.1 10^3/uL (0.0-0.2); BASO % 0.8 % (0.0-1.0); EOS # 0.2 10^3/uL (0.0-0.5); EOS % 1.6 % (0.0-3.0); HEMATOCRIT 39.2 % (36.0-47.0); HEMOGLOBIN 12.8 g/dl (12.0-15.5); LYMPH # 4.1 10^3/uL (1.5-5.0); LYMPH % 39.3 % (24.0-44.0); MEAN CORPUSCULAR HEMOGLOBIN 32.2 pg (27.0-33.0); MEAN CORPUSCULAR HGB CONC 32.7 g/dl (32.0-36.5); MEAN CORPUSCULAR VOLUME 98.7 fl (80.0-96.0); MONO # 0.6 10^3/uL (0.0-0.8); MONO % 5.6 % (2.0-8.0); NEUTROPHILS # 5.4 10^3/uL (1.5-8.5); NEUTROPHILS % 52.4 % (36.0-66.0); PLATELET COUNT, AUTOMATED 330 10^3/uL (150-450); RED BLOOD COUNT 3.97 10^6/uL (4.00-5.40); WHITE BLOOD COUNT 10.4 10^3/uL (4.0-10.0)
[2023-08-06 14:22] LABS: HEMOGLOBIN A1c 5.7 % (4.0-6.0)
[2023-08-06 14:30] LABS: CREATININE, URINE 186.1 MG/DL
[2023-08-06 18:38] LABS: IRON (FE) 96 UG/DL (50-170)
[2023-08-06 18:39] LABS: ALKALINE PHOSPHATASE 96 U/L (46-116); ALT/SGPT 32 U/L (7.0-40); AST/SGOT 18 U/L (<34); BILIRUBIN,TOTAL 1.6 MG/DL (0.3-1.2); BLOOD UREA NITROGEN 11 MG/DL (9-23); CALCIUM LEVEL 8.8 MG/DL (8.5-10.1); CARBON DIOXIDE LEVEL 26 MMOL/L (20-31); CHLORIDE LEVEL 104 MMOL/L (98-107); CHOLESTEROL LEVEL 137 MG/DL (<200); CHOLESTEROL RISK RATIO 4.21 (<5); CREATININE FOR GFR 0.51 MG/DL (0.55-1.30); FREE T4 0.86 NG/DL (0.89-1.76); GLOMERULAR FILTRATION RATE > 60.0 (>60); GLUCOSE, FASTING 72 MG/DL (60-100); HDL CHOLESTEROL 32.5 MG/DL (>40); LDL CHOLESTEROL 42.7 MG/DL (<100); NON-HDL-C 104.5 MG/DL; PERCENT SATURATION 28.3 % (13.2-45.0); POTASSIUM SERUM 3.8 MMOL/L (3.5-5.1); SODIUM LEVEL 138 MMOL/L (136-145); TOTAL IRON BINDING CAPACITY 339 UG/DL (250-425); TOTAL PROTEIN 7.4 G/DL (5.7-8.2); TRIGLYCERIDES LEVEL 309 MG/DL (<150)
[2023-08-06 18:40] LABS: TOTAL 25(OH) VITAMIN D 58.7 NG/ML (20.0-100.0); VITAMIN B12 LEVEL 483 PG/ML (211-911)
[2023-08-06 18:41] LABS: FERRITIN 28.1 NG/ML (7.3-270.7); FOLATE 23.76 NG/ML (>5.4); THYROID STIMULATING HORMONE 1.249 uIU/ML (0.55-4.78)
== END ==
LOC: M WUC 10:36
PROVIDERS: ATTEND Nurse Practitioner Adult Health
DX: E11.65 Type 2 diabetes mellitus with hyperglycemia (principal); D50.9 Iron deficiency anemia, unspecified

== ENCOUNTER → 2024-05-13 | Outpatient (REF) | payer BC ==
[2024-05-13 11:15] LABS: BASO # 0.1 10^3/uL (0.0-0.2); BASO % 0.7 % (0.0-1.0); EOS # 0.2 10^3/uL (0.0-0.5); EOS % 1.7 % (0.0-3.0); HEMATOCRIT 36.9 % (36.0-47.0); HEMOGLOBIN 12.3 g/dl (12.0-15.5); LYMPH # 2.9 10^3/uL (1.5-5.0); LYMPH % 31.1 % (24.0-44.0); MEAN CORPUSCULAR HEMOGLOBIN 33.2 pg (27.0-33.0); MEAN CORPUSCULAR HGB CONC 33.3 g/dl (32.0-36.5); MEAN CORPUSCULAR VOLUME 99.5 fl (80.0-96.0); MONO # 0.5 10^3/uL (0.0-0.8); MONO % 5.4 % (2.0-8.0); NEUTROPHILS # 5.7 10^3/uL (1.5-8.5); NEUTROPHILS % 60.7 % (36.0-66.0); PLATELET COUNT, AUTOMATED 317 10^3/uL (150-450); RED BLOOD COUNT 3.71 10^6/uL (4.00-5.40); WHITE BLOOD COUNT 9.5 10^3/uL (4.0-10.0)
[2024-05-13 11:33] LABS: HEMOGLOBIN A1c 5.4 % (4.0-6.0)
[2024-05-13 11:49] LABS: ALBUMIN 3.8 G/DL (3.2-5.2); ALKALINE PHOSPHATASE 116 U/L (35-104); ALT/SGPT 26 U/L (7.0-40); AST/SGOT 10 U/L (<34); BILIRUBIN,TOTAL 1.6 MG/DL (0.3-1.2); BLOOD UREA NITROGEN 11 MG/DL (9-23); CALCIUM LEVEL 9.2 MG/DL (8.5-10.1); CARBON DIOXIDE LEVEL 26 MMOL/L (20-31); CHLORIDE LEVEL 104 MMOL/L (98-107); GLOMERULAR FILTRATION RATE > 60.0 (>60); GLUCOSE, FASTING 84 MG/DL (60-100); POTASSIUM SERUM 4.1 MMOL/L (3.5-5.1); SODIUM LEVEL 137 MMOL/L (136-145); TOTAL PROTEIN 7.6 G/DL (5.7-8.2)
[2024-05-13 12:13] LABS: CHOLESTEROL RISK RATIO 4.13 (<5); HDL CHOLESTEROL 29.5 MG/DL (>40); LDL CHOLESTEROL 55.3 MG/DL (<100); NON-HDL-C 92.5 MG/DL
== END ==
LOC: M LABWUC 09:37
PROVIDERS: ATTEND Nurse Practitioner Adult Health
DX: E11.65 Type 2 diabetes mellitus with hyperglycemia (principal)

== ENCOUNTER → 2024-05-13 | Outpatient (REF) | payer BC ==
[2024-05-13 12:13] LABS: BLOOD UREA NITROGEN 10 MG/DL (9-23); CARBON DIOXIDE LEVEL 26 MMOL/L (20-31); CHLORIDE LEVEL 106 MMOL/L (98-107); GLOMERULAR FILTRATION RATE > 60.0 (>60); GLUCOSE, FASTING 83 MG/DL (60-100); POTASSIUM SERUM 4.2 MMOL/L (3.5-5.1); SODIUM LEVEL 140 MMOL/L (136-145)
== END ==
LOC: M LABWUC 09:39
PROVIDERS: ATTEND Internal Medicine Interventional Cardiology
DX: I25.2 Old myocardial infarction (principal); E78.2 Mixed hyperlipidemia; I10 Essential (primary) hypertension

== ENCOUNTER → 2024-08-21 | Outpatient (CLI) | payer BC ==
[~2024-08-21] MED LIST changes: +ATOR-398 PO; -LIPI80TA PO
== END ==
LOC: M RAD 08:03
PROVIDERS: ATTEND Advanced Practice Midwife
DX: N93.9 Abnormal uterine and vaginal bleeding, unspecified (principal); Z30.431 Encounter for routine checking of intrauterine contraceptive device; N80.101 Endometriosis of right ovary, unspecified depth

== ENCOUNTER → 2024-10-14 | Outpatient (CLI) | payer BC ==
[2024-10-14 18:10] LABS: BASO # 0.1 10^3/uL (0.0-0.2); BASO % 0.6 % (0.0-1.0); EOS # 0.2 10^3/uL (0.0-0.5); EOS % 1.7 % (0.0-3.0); HEMATOCRIT 42.2 % (36.0-47.0); HEMOGLOBIN 13.7 g/dl (12.0-15.5); LYMPH # 4.4 10^3/uL (1.5-5.0); LYMPH % 32.8 % (24.0-44.0); MEAN CORPUSCULAR HGB CONC 32.5 g/dl (32.0-36.5); MEAN CORPUSCULAR VOLUME 98.6 fl (80.0-96.0); MONO # 0.8 10^3/uL (0.0-0.8); MONO % 5.9 % (2.0-8.0); NEUTROPHILS # 7.9 10^3/uL (1.5-8.5); NEUTROPHILS % 58.6 % (36.0-66.0); PLATELET COUNT, AUTOMATED 359 10^3/uL (150-450); RED BLOOD COUNT 4.28 10^6/uL (4.00-5.40); WHITE BLOOD COUNT 13.5 10^3/uL (4.0-10.0)
[2024-10-14 18:39] LABS: BLOOD UREA NITROGEN 14 MG/DL (9-23); CARBON DIOXIDE LEVEL 25 MMOL/L (20-31); CHLORIDE LEVEL 101 MMOL/L (98-107); CREATININE FOR GFR 0.58 MG/DL (0.55-1.30); GLOMERULAR FILTRATION RATE > 60.0 (>60); GLUCOSE, FASTING 84 MG/DL (60-100); SODIUM LEVEL 138 MMOL/L (136-145)
[2024-10-14 18:48] LABS: HCG, SERUM QUALITATIVE NEGATIVE (NEGATIVE)
== END ==
LOC: M WUC 15:23
PROVIDERS: ATTEND Nurse Practitioner Adult Health
DX: Z01.818 Encounter for other preprocedural examination (principal)